=== PATIENT | male | born 1935 | race Hispanic/Latino ===

== ENCOUNTER → 2017-05-15 | Day surgery (SDC) | payer OTHER ==
[2017-05-14 12:52] LABS: BASOPHILS % 0.5 % (0.0-1.0); EOSINOPHILS # (AUTO) 0.8 (0.0-0.4); EOSINOPHILS % 9.8 % (0.0-6.0); HEMATOCRIT 27.5 % (38.2-49.6); HEMOGLOBIN 8.3 g/dL (14.0-18.0); LYMPHOCYTES # (AUTO) 2.3 (1.0-3.2); LYMPHOCYTES % 29.5 % (18.0-39.1); MEAN CORPUSCULAR HEMOGLOBIN 27.5 pg (28-32); MEAN CORPUSCULAR HGB CONC 30.2 g/dL (31-35); MEAN CORPUSCULAR VOLUME 91.1 fL (81-99); MONOCYTES # (AUTO) 0.6 (0.2-0.8); NEUTROPHILS # (AUTO) 4.1 (2.1-6.9); NEUTROPHILS % 51.9 % (38.7-80.0); PLATELET COUNT 151 x10e3/uL (140-360); RED BLOOD COUNT 3.02 x10e6/uL (4.3-5.7)
[2017-05-14 13:12] LABS: CALCIUM 8.2 mg/dL (8.4-10.2); CREATININE, SERUM 3.15 mg/dL (0.72-1.25)
--- NOTE | 2017-05-14 13:50 | Diagnostic Imaging Report ---
PROCEDURE: Frontal and lateral views of the chest. COMPARISON: Patients [facility], CT, CT ABDOMEN/PELVIS WO, 07/05/2016, 17:23. Patients [facility], DX, CHEST 2 VIEWS, 11/03/2016, 18:13. INDICATIONS: PREOP - STENTS FINDINGS: Lines/tubes: None. Lungs: The lungs are well inflated and grossly clear. There is no evidence of pneumonia or pulmonary edema. Pleura: There is no pleural effusion or pneumothorax. Stable blunting of the left posterior costophrenic sulcus, due to pleural thickening. Heart and mediastinum: Cardiac silhouette is unremarkable. Pulmonary vasculature is normal. Stable prominence of the epicardial fat pads. Bones: No acute bony abnormality. IMPRESSION: 1. No acute cardiopulmonary abnormalities. Andrew Ludwig M.D. Dictated by: Andrew Ludwig M.D. on 05/14/2017 at 13:50 Electronically approved by: Andrew Ludwig M.D. on 05/14/2017 at 13:50
[~2017-05-15] MED LIST: ACETAMINOPHEN 325 MG TAB ONE; ALBUTEROL0.63 MG/3 INH; AMPICILLIN SOD IV ONE; ASPIRIN81 MG PO; BELLADONNA/OPIUM 60 MG SUPP PR ONE; CARDURA2 MG PO; CEFDINIR300 MG PO; CEFTRIAXONE SOD 1 GM VIAL ONE; CLINDAMYCIN HC300 MG PO; CLOTRIMAZOLE10 MG PO; COLACE100 MG PO; DESFLURANE 240 ML BTL INH ONE; DEXAMETHASONE SOD PHOS INJ 4 MG/ML VIAL ONE; DOXAZOSIN MESYLA2 MG PO; FENTANYL CITRATE/PF 100MCG/2 ML INJ ONE; FERROUS SULFAT325 MG PO; FUROSEMIDE40 MG PO; IOPAMIDOL 610MG/1ML 300 MG/ML VIAL IV ONE; LASIX80 MG PO; LEVAQUIN250 MG PO; LIDOCAINE HCL 2% LOCAL INJ 5 ML SDV VIAL INJ ONE; LOVASTATIN40 MG PO; MEGESTROL ACETA40 MG PO; NAPROXEN500 MG PO; NASONEX17 GM; OMEPRAZOLE20 M1 PO; ONDANSETRON HCL INJ 2 MG/ML VIAL ONE; OXYBUTYNIN CHLO10 MG PO; OXYBUTYNIN CHLOR5 MG PO; PENICILLIN V P500 MG PO; PENTOXIFYLLINE PO; POLYETHYLENE GL17 GM PO; PROAIR HFA8.5 G1; PROPOFOL IV EMULSION 10 MG/ML 20 ML VIAL ONE; SOD CHL 0.9% IV ONE; SYMBICORT 160-4.6 GM; SYMBICORT 16010.2 GM PO; TYLENOL PO; ULTRAM 50MG50 MG PO; Z.0.CARDURA4 MG PO; Z.0.CIPRO750 MG PO; Z.0.FLOMAX0.4 MG PO; Z.0.LASIX40 MG PO; Z.0.LIPITOR20 MG PO; Z.0.PROSCAR5 MG PO; Z.0.TOVIAZ4 MG PO; Z.0.VENTOLIN HFA18 G; [UNRECOGNIZED DRUG - CODE] INH; [UNRECOGNIZED DRUG - OTHER]; [UNRECOGNIZED DRUG - OTHER] PO; [UNRECOGNIZED DRUG - OTHER] PO; [UNRECOGNIZED DRUG - OTHER] PO
--- OUTSIDE RECORDS SUMMARY | 2017-05-15 07:01 | XMS REPORT ---
Author Author [facility] Address Unknown Phone Unavailable Care Team Providers [employer] Dumper Name Role Phone JESUS MITCHELL Unavailable Unavailable Problems This patient has no known problems. Allergies, Adverse Reactions, Alerts This patient has no known allergies or adverse reactions. Medications This patient has no known medications. Results Test Description Test Time Test Comments Text Results Atomic Results Result Comments CHEST 2 VIEWS [place] [address] Patient Name: ERROL HENDRICKS MR #: [id number] : 1935 Age/Sex: 81/M Req #: [id number] Adm Physician: Ordered by: KITA ALONZO MD Report #: [id number] Location: OR Room/Bed: Procedure: [id number] DX/CHEST 2 VIEWS Exam Date: 05/14/17 Exam Time: 1305 REPORT STATUS: Signed PROCEDURE: Frontal and lateral views of the chest. COMPARISON: [facility], CT, CT ABDOMEN/PELVIS WO, 07/05/2016, 17:23. [facility], DX, CHEST 2 VIEWS, 11/03/2016 , 18:13. INDICATIONS: PREOP - STENTS FINDINGS: Lines/tubes: None. Lungs: The lungs are well inflated and grossly clear. There is no evidence of pneumonia or pulmonary edema. Pleura: There is no pleural effusion or pneumothorax. Stable blunting of the left posterior costophrenic sulcus, due to pleural thickening. Heart and mediastinum: Cardiac silhouette is unremarkable. Pulmonary vasculature is normal. Stable prominence of the epicardial fat pads. Bones: No acute bony abnormality. IMPRESSION: 1. No acute cardiopulmonary abnormalities. Rebecca Ludwig M.D. Dictated by: Rebecca Ludwig M.D. on 05/14/2017 at 13:50 Electronically approved by: Rebecca Ludwig M.D. on 2017 at 13:50 Dictated By: REBECCA LUDWIG MD 1350 Transcribed By: GLORIA on 1350 COPY TO: KITA ALONZO MD
--- NOTE | 2017-07-19 12:43 | Operative Report ---
DATE OF PROCEDURE: May 15, 2017 PREOPERATIVE DIAGNOSES 1. Bilateral ureteral strictures. 2. Bilateral hydronephrosis due to strictures. 3. Bilateral indwelling ureteral stents. POSTOPERATIVE DIAGNOSES 1. Bilateral ureteral strictures. 2. Bilateral hydronephrosis due to strictures. 3. Bilateral indwelling ureteral stents. PROCEDURE PERFORMED 1. Cystourethroscopy with removal of bilateral indwelling ureteral stents (separately performed for diagnosis of the stents). 2. Cystourethroscopy with dilation of right ureteral stricture (separately performed for diagnosis of stricture). 3. Cystourethroscopy with insertion of right indwelling ureteral stent (separately performed for insertion of the stent). 4. Cystourethroscopy with dilation of left indwelling ureteral stricture (separately performed for diagnosis of left stricture). 5. Cystourethroscopy with insertion of left indwelling ureteral stent (separately performed for to relieve hydronephrosis). 6. Interpretation of retrograde ureteropyelography. 7. Supervision of fluoroscopy; no radiologist present. 8. Urological services for supervision and interpretation of stricture dilation. ANESTHESIA: General. COMPLICATIONS: None. CLINICAL SUMMARY: Ludin Carroll is an 81-year-old with multiple urological problems and a longstanding history. He has the above diagnoses and is brought for the above procedures. He is aware of the risks of bleeding, infection, injury to adjacent structures, and need for additional procedure . He understood these risks and elected to proceed. OPERATIVE PROCEDURE IN DETAIL: Informed consent was verified. Ludin Carroll was properly identified, taken to the operating room, and placed on the cystoscopy table in the supine position. Anesthesia was uneventfully begun. The patient was then carefully and gently repositioned in the dorsal lithotomy position with all pressure points well padded. His genitalia were prepared and draped in usual sterile fashion. The 22.5-Rw[place]an cystoscope sheath with a visual obturator in place was atraumatically inserted into the patient's urethra and was guided down the relatively unremarkable urethra to the bulbar region. We dilated across a wide caliber stricture. We entered the patient's prostate bed, which was significant for some BPH. We entered the patient's bladder. We saw heavy trabeculations and bilateral stents. A guidewire was then placed alongside the right-sided stent to be guided along the patient's kidney. The stent was then grasped, completely removed, and discarded. A double-lumen ureteral catheter was then utilized as a coaxial dilator sheath. It was brought up over the guidewire and guided to the level of the patient's proximal ureter. We then placed a guidewire wire leaving it in place the guidewire. With cystoscopic and fluoroscopic guidance, a right-sided indwelling ureteral stent was then placed. It was coiled in the patient's kidney as well as the patient's bladder. The retaining suture was cut short. An identical maneuver was performed on the left hand side including stricture dilation and replacement of the stent. Interpretation of retrograde ureteropyelography: Contrast was instilled in a retrograde fashion bilaterally. He has ureteral tortuosity bilaterally. There is hydronephrosis that is more severe on the left hand side than the right hand side. The strictures appeared to be tight. I reviewed our dilation. The stents were in good position coiled in the patient's kidney as well as in the patient's bladder at the end of the case. Patient's bladder was then drained. The cystoscope was withdrawn. The patient was uneventfully reversed from anesthesia and taken to the recovery room in stable condition. Explicit postoperative instructions were given. We will follow the patient up in the office. Job#: [id number] KUN cc:Sterling Simpson MD
== END | disposition home or self-care (01) ==
LOC: OR 06:59
PROVIDERS: ATTEND Urology
DX: N13.1 Hydronephrosis with ureteral stricture, not elsewhere classified (principal); C61 Malignant neoplasm of prostate; Z46.6 Encounter for fitting and adjustment of urinary device; N32.89 Other specified disorders of bladder; N40.0 Benign prostatic hyperplasia without lower urinary tract symptoms; J44.9 Chronic obstructive pulmonary disease, unspecified; G47.33 Obstructive sleep apnea (adult) (pediatric); I10 Essential (primary) hypertension; R53.1 Weakness; Z01.810 Encounter for preprocedural cardiovascular examination; Z01.812 Encounter for preprocedural laboratory examination; Z01.818 Encounter for other preprocedural examination; Z87.891 Personal history of nicotine dependence
CPT/HCPCS: 36415; 52332; 52341; 71046; 74420; 80048; 85025; 87086; 93005; J0290; J0696; J1100; J2001; J2405; Q9967

== ENCOUNTER 2017-07-29 02:21 | Inpatient (IN) | payer OTHER ==
[~2017-07-29] VITALS: Ht 182.9 cm; Wt 72.3 kg
[2017-07-29] VITALS (79 sets, daily range): BP systolic 78–145; BP diastolic 50–105
[~2017-07-29 02:21] MED LIST changes: -ACETAMINOPHEN 325 MG TAB ONE; -AMPICILLIN SOD IV ONE; -BELLADONNA/OPIUM 60 MG SUPP PR ONE; -CEFTRIAXONE SOD 1 GM VIAL ONE; -DESFLURANE 240 ML BTL INH ONE; -DEXAMETHASONE SOD PHOS INJ 4 MG/ML VIAL ONE; -FENTANYL CITRATE/PF 100MCG/2 ML INJ ONE; -IOPAMIDOL 610MG/1ML 300 MG/ML VIAL IV ONE; -LIDOCAINE HCL 2% LOCAL INJ 5 ML SDV VIAL INJ ONE; -ONDANSETRON HCL INJ 2 MG/ML VIAL ONE; -PROPOFOL IV EMULSION 10 MG/ML 20 ML VIAL ONE; -SOD CHL 0.9% IV ONE
[2017-07-29 03:03] LABS: BASOPHILS % 0.2 % (0.0-1.0); EOSINOPHILS % 0.1 % (0.0-6.0); HEMATOCRIT 27.8 % (38.2-49.6); HEMOGLOBIN 8.2 g/dL (14.0-18.0); LYMPHOCYTES # (AUTO) 0.8 (1.0-3.2); LYMPHOCYTES % 7.4 % (18.0-39.1); MEAN CORPUSCULAR HEMOGLOBIN 27.9 pg (28-32); MEAN CORPUSCULAR HGB CONC 29.5 g/dL (31-35); MEAN CORPUSCULAR VOLUME 94.6 fL (81-99); MONOCYTES # (AUTO) 0.8 (0.2-0.8); MONOCYTES % 6.9 % (4.4-11.3); NEUTROPHILS # (AUTO) 9.4 (2.1-6.9); NEUTROPHILS % 84.6 % (38.7-80.0); PLATELET COUNT 218 x10e3/uL (140-360); RED BLOOD COUNT 2.94 x10e6/uL (4.3-5.7); RED CELL DISTRIBUTION WIDTH 15.1 % (11.7-14.4)
[2017-07-29] MEDS ORDERED: ALBUTEROL SULF 0.083% NEB SOLN 3 ML NEB NEB STA (03:09)
[2017-07-29] MEDS ORDERED: PIPER-TAZ 3.375 GM 50 ML IV ONE (03:15)
[2017-07-29 03:22] LABS: ALBUMIN 3.3 g/dL (3.5-5.0); ALBUMIN/GLOBULIN RATIO 0.8 (0.8-2.0); CALCIUM 9.1 mg/dL (8.4-10.2); CREATININE, SERUM 3.69 mg/dL (0.72-1.25)
[2017-07-29] MEDS ORDERED: TYLENOL EXTRA500 MG PO (03:28)
[2017-07-29] MEDS ORDERED: METHYLPREDNISOLONE SOD SUCC 125 MG/2ML VIAL IV ONE (03:30)
[2017-07-29 03:33] LABS: INR 1.22; PROTHROMBIN TIME 14.5 seconds (11.9-14.5)
[2017-07-29 03:34] LABS: PARTIAL THROMBOPLASTIN TIME 37.1 seconds (23.8-35.5)
[2017-07-29] MEDS ORDERED: COLACE100 MG PO (03:36)
--- NOTE | 2017-07-29 03:36 | Diagnostic Imaging Report ---
EXAM: CHEST 2 VIEWS, PA and lateral INDICATION: Chest pain COMPARISON: PA and lateral view of the chest May 14, 2017 FINDINGS: LINES/TUBES: None LUNGS: Bibasilar atelectasis. Bibasilar bronchial thickening. PLEURA: No effusions or pneumothorax. HEART AND MEDIASTINUM: Normal size and contour. BONES AND SOFT TISSUES: No acute findings. IMPRESSION: Bibasilar bronchial thickening and atelectasis. Emphysematous changes with bibasilar bronchial thickening and atelectasis. Signed by: Dr. Hina Nunez M.D. on 07/29/2017 3:33 AM
[2017-07-29] MEDS ORDERED: ASPIR 8181 MG PO (03:39)
[2017-07-29] MEDS ORDERED: IPRATROPIUM BROMIDE 0.02% 2.5 ML NEB NEB ONE (03:45)
[2017-07-29] MEDS ORDERED: ASPIRIN 325 MG TAB PO ONE (03:45)
[2017-07-29] MEDS ORDERED: NITROGLYCERIN 2% OINT 1 GM PKT TOP ONE (03:45)
[2017-07-29] MEDS ORDERED: ENOXAPARIN INJ 80 MG/0.8 ML SYR SC STA (04:01)
[2017-07-29 04:05] LABS: ABG HCO3 20 mmol/L (23-28); ABG PCO2 51 mmHg (41-51); ABG PH 7.18 (7.31-7.41); ABG PO2 81 mmHg (80-105)
[2017-07-29 04:20] LABS: CREATINE KINASE MB 42.8 ng/mL (0-4.3)
[2017-07-29] MEDS ORDERED: MORPHINE SULFATE 2 MG/ML SYR IV PRN (04:30)
[2017-07-29] MEDS ORDERED: SODIUM CHLORIDE FLUSH 10 ML SYR INJ PRN (04:30)
[2017-07-29] MEDS ORDERED: METOPROLOL TARTRATE 25 MG TAB PO SCH (04:30)
[2017-07-29] MEDS ORDERED: ENOXAPARIN SODIUM INJ 100 MG/ML SYR SC SCH (04:30)
[2017-07-29] MEDS ORDERED: PIPER-TAZ 3.375 GM 50 ML IV SCH (04:30)
[2017-07-29] MEDS ORDERED: SODIUM CHLORIDE 0.9% 250ML 250 ML IV ONE (04:30)
[2017-07-29] MEDS ORDERED: ASPIRIN 81 MG CHEW TAB PO ONE (04:30)
[2017-07-29] MEDS: METHYLPREDNISOLONE SOD SUCC 125 MG/2ML VIAL IV SCH ×3 (06:00→22:30)
[2017-07-29] MEDS: NITROGLYCERIN 2% OINT 1 GM PKT TOP SCH ×3 (06:00→18:00)
[2017-07-29 07:26] LABS: BILIRUBIN,URINE NEGATIVE (NEGATIVE); CLARITY,URINE CLEAR (CLEAR); COLOR,URINE YELLOW (YELLOW); KETONES,URINE NEGATIVE (NEGATIVE); LEUKOCYTE ESTERASE ,URINE NEGATIVE (NEGATIVE); NITRITE,URINE NEGATIVE (NEGATIVE); PROTEIN,URINE DIPSTICK TRACE (NEGATIVE); URINE UROBILINOGEN 0.2 mg/dL (0.2 - 1)
[2017-07-29 07:27] LABS: WBC,URINE (MAN) 0-5 /HPF (0-5)
[2017-07-29 07:28] LABS: EPITHELIAL CELLS,URINE RARE /LPF
[2017-07-29] MEDS ORDERED: ASPIRIN 325 MG TAB EC PO SCH (09:00)
[2017-07-29] MEDS: ASPIRIN 81 MG CHEW TAB PO SCH (09:00)
[2017-07-29] MEDS: ENOXAPARIN SODIUM INJ 100 MG/ML SYR SC SCH (09:00)
[2017-07-29] MEDS ORDERED: SIMVASTATIN 20 MG TAB PO SCH (09:00)
[2017-07-29] MEDS ORDERED: BENZONATATE 100 MG CAP PO PRN (09:30)
[2017-07-29] MEDS ORDERED: SODIUM CHLORIDE 0.45% 1,000 ML IV SCH (09:30)
[2017-07-29] MEDS ORDERED: DEXTROSE 50% SYRINGE 50 ML IV PRN (09:30)
[2017-07-29] MEDS: DOCUSATE SODIUM 100 MG CAP PO SCH ×2 (09:30→17:00)
[2017-07-29] MEDS: METOPROLOL TARTRATE 25 MG TAB PO SCH ×2 (09:45→21:00)
[2017-07-29] MEDS: ALBUTEROL/IPRATROPIUM 3 ML NEB NEB PRN ×2 (09:55→13:38)
--- NOTE | 2017-07-29 10:24 | History and Physical ---
CHIEF COMPLAINT: Cough, fever and shortness of breath. Patient is a pleasant 81-year-old male with multiple chronic medical problems. The patient is oxygen dependent at home. He came in with increasing cough and shortness of breath and with acute exacerbation of COPD. The patient found have positive cardiac enzymes as well. He does have kidney failure as well. His troponin I was 9.45. His CK level is 42. The patient was in distress when he came in with shortness of breath. BUN and creatinine in the emergency room was 50 and 3.7. The patient is currently stable. Pending for further workup. PAST MEDICAL HISTORY: Chronic kidney disease, COPD, hypertension, diabetes, history of prostate cancer, history of her chronic kidney disease and ureteral obstruction with multiple stent placement. SOCIAL HISTORY: Patient was an ex-smoker. No alcohol or recreational drugs. ALLERGIES: NO KNOWN ALLERGIES. HOME MEDICATIONS: Patient is on Tylenol, aspirin, Colace, doxazosin, furosemide, lovastatin. PHYSICAL EXAMINATION VITAL SIGNS: Temperature is 98, blood pressure 104/58, pulse rate 92, respirations 22. GENERAL: The patient is awake. He is alert and not in any distress. HEENT: Normocephalic, atraumatic and anicteric. NECK: Supple grossly. PULMONARY: Diminished breath sounds with wheezing and rhonchi. No rales at the bases. CARDIOVASCULAR: S1 and S2. Regular rate and rhythm. No tachycardia. ABDOMEN: Soft and unremarkable. EXTREMITIES: No cyanosis or edema. NEUROLOGIC: There is no focal deficit. LABORATORY: Sodium 140, potassium 4, chloride 106, bicarb 20, BUN 60, creatinine 3.7, glucose 156. Troponin I is 9.45. CK level is 313 and CK-MB is 42.8. BNP is 2050. WBC is 11.6, hemoglobin 8.2, hematocrit 27.8, and platelets 218,000. Urinalysis unremarkable. The patient's INR is 1.22. Chest x-ray with emphysematous lung. IMPRESSION 1. Acute exacerbation of chronic obstructive pulmonary disease. 2. Gef-GE-irllctrkw myocardial infarction. 3. Acute kidney injury on chronic kidney disease, most likely secondary to also maybe dehydration. PLAN: IV fluids. Gentle rehydration. Consultation with Dr. Lambert. Steroids and nebulizer treatment. Consultation with Dr. Ba Rojas for renal. Renal ultrasound. Consultation with Dr. Hampel for management of the previous stent and urinary obstruction. Patient pending on consultation. Job#: [id number] BRISEIDA
[2017-07-29 10:37] LABS: % IRON SATURATION 6 % (15-50); IRON 14 ug/dL (65-175); TOTAL IRON BINDING CAPACITY 230 ug/dL (261-478); TRANSFERRIN 164 mg/dL (174-364)
[2017-07-29 11:44] LABS: CREATINE KINASE MB 53.2 ng/mL (0-5.0)
--- NOTE | 2017-07-29 12:05 | Consultation ---
DATE OF CONSULTATION: July 29, 2017 NEPHROLOGY CONSULTATION REASON FOR CONSULT: Cwwsi-td-turdoac kidney disease. HPI: This is an 81-year-old male who is known to have multiple medical problems including hypertension, COPD, ex-smoker and he is known to have prostate cancer, status post Lupron in the past along with radiation therapy. Dr. Gerber has been following up. In June of 2016, he was admitted with urine retention, for which a cystoscopy done and he has been having bilateral ureteral stents given chronic hydronephrosis that has been exchanged every 3 months. He is due for exchange in 2 weeks. He is basically coming because of generalized weakness and fatigue. For the last few weeks, he has been having like tiredness every time he standup and walk for few steps. He will come back and lay in the chair because of low energy. Yesterday midnight, he woke up and he could not come out of the bed and he pooped on himself and almost passed out. He was brought to the ER for further evaluation. Troponin has been noticed to be extremely high. Cardiology has been consulted. We are consulted given creatinine is elevated. As we go back in the records, his creatinine has been high before. Since 2017, creatinine has been ranging between 2.8 and 3.6 and fluctuating. He has never seen university internship as per the family. He is only following up with Dr. Gerber, but he was told by his PCP, Dr. Simpson that he is close to be needing dialysis, so basically the patient is coming and he is being admitted for ICU and we are consulted for elevation in BUN and creatinine. PAST MEDICAL HISTORY: As mentioned above. PAST SURGICAL HISTORY: Status post radiation therapy, status post knee and spine surgery, status post hernia surgery, status post cystoscopy. FAMILY HISTORY: Positive for hypertension. SOCIAL HISTORY: Ex-smoker, quit smoking long time ago. No IV drug abuse. No alcohol. ALLERGIES: Negative per records. PHYSICAL EXAMINATION VITAL SIGNS: Today, blood pressure is 120/73, heart rate is 95, and temperature 98.5. GENERAL: Appears in no acute distress currently. HEAD, EARS, EYES, NECK: No lymphadenopathy. HEART: Regular rate and rhythm. Tachycardic. LUNGS: Good bilateral air entry with bibasilar rales. ABDOMEN: Soft and nontender. EXTREMITIES: Trace edema. LABORATORY DATA: Today, sodium 140, potassium 4.0, BUN is 60, creatinine is 3.69, CK-MB 42, CK is 315, troponin 9.4, BNP is 2050, and albumin 3.3. His urine is positive for protein and rbc's. ABG; pH 7.18, his pCO2 of 61, and bicarb is 20. Hemoglobin 8.2 and white count is 11. Chest x-ray with bibasilar bronchial thickening and atelectasis and emphysematous changes. ASSESSMENT AND PLAN 1. Acute kidney injury on top of chronic kidney disease. I am suspecting there is decline in the last year 2017 until now, is suspected secondary to chronic hydronephrosis and bilateral obstruction, status post stenting. We are going to order renal ultrasound stat to check on the stent positions. The patient did not pee since he was straight catheterized in the ER. We are going to insert a Lopez for strict ins and outs in the meantime. Urology will be following. Check fractional excretion of sodium. Avoid any nephrotoxins and nonsteroidal anti-inflammatory drugs. His creatinine today is 3.6 and within the last year has been fluctuating between 2.8 and 3.5, so it is close to his baseline range. I am suspecting chronic decline. 2. Electrolytes. Monitor potassium, on renal diet. 3. Hypertension. Blood pressure is acceptable. Hold on GARY inhibitors and ARBs in the meantime. 4. Non-ST elevation myocardial infarction with high troponin. Cardiology is following. Probably, the patient has been having heart attack previous to admission. I discussed in detail his risk for qozobhtz-qw-rcgr risk of contrast-induced nephroscopy and ending up needing hemodialysis post heart catheterization and contrast exposure, and the family and the patient agrees on the plan and want to proceed with heart catheterization. I am going to give IV fluids and Mucomyst and monitor his kidney function in the meantime since he has a low kidney function reserve. We are going to put a temporary hemodialysis catheter and monitor post heart catheterization his kidney function and his labs along with urine output. In case needed, we will initiate hemodialysis after heart catheterization. Cardiology service has been informed about the plan. Thank you for the consult. We will update the primary team for further recommendations. In the meantime, keep IV fluids and add IV bicarb given metabolic acidosis and give Mucomyst and we will attempt to insert temporary HD catheter by IR in case needed after her heart cath given high probability of needing dialysis post contrast exposure in this case. Job#: [id number] SUSANNE
[2017-07-29] MEDS: CEFTRIAXONE SOD 1 GM VIAL IV SCH (12:55)
[2017-07-29] MEDS: SODIUM BICARBONATE 8.4% 75 ML in SODIUM CHLORIDE 0.45% 1,000 ML IV SCH (12:55)
[2017-07-29] MEDS: INSULIN LISPRO 100 UNIT/1 ML 3ML VIAL SQ SCH ×3 (12:57→21:00)
--- NOTE | 2017-07-29 13:11 | Consultation ---
DATE OF CONSULTATION: July 29, 2017 CARDIOLOGY CONSULTATION REASON FOR CONSULTATION: Qnw-DR-vghzfxgyz HI. HPI: This is an 81-year-old male that presented with coughing and fever. According to the , he had a cough and fever for the past 3 days. He uses home oxygen due to history of COPD. He also stated he was sitting on a recliner and he passed out. She did not remember how long, but she brought him into the emergency room for evaluation. He denied any chest pain, any palpitations, any dizziness, or shortness of breath. He was found to have an elevated troponin, and he was sent to the ICU for evaluation. His chest x-ray showed COPD. PAST MEDICAL HISTORY: Bilateral ureteral stricture, chronic COPD with home oxygen dependence, and prostate cancer. PAST SURGICAL HISTORY: Positive for bilateral ureteral stent placement by urology. FAMILY HISTORY: Positive for hypertension. SOCIAL HISTORY: He lives at home with the . He smoked for a long time, but he quit 18 years ago. ALLERGIES: HE IS NOT ALLERGIC TO ANY MEDICATIONS. REVIEW OF SYSTEMS: Negative except those mentioned above. PHYSICAL EXAMINATION VITAL SIGNS: Temperature 98, heart rate 89, blood pressure 132/74, respirations 22, oxygen saturation 98%. GENERAL: He is sitting on the edge of the bed. Awake, alert and oriented times 3. HEENT: Mucous membrane moist. NECK: Supple. LUNGS: Bilateral clear to auscultation. CARDIOVASCULAR: S1 and S2 present. ABDOMEN: Soft. NEUROLOGICAL: Intact. EXTREMITIES: Bilateral lower with trace edema with redness noted. LABS: Sodium 140, potassium 4, chloride 106, CO2 20, BUN 16, creatinine 3.69, glucose 156. White blood cells 11, hemoglobin 8.2, hematocrit 27.8, and platelets 218,000. PT 14.5, PTT 37.1 and INR 1.22. IMPRESSION 1. Ssm-LR-rarllzsbb myocardial infarction. 2. Anemia. 3. Syncope. 4. Chronic obstructive pulmonary disease exacerbation. 5. Chronic kidney disease. 6. History of bilateral ureteral stents. ASSESSMENT AND PLAN: Will get serial cardiac enzymes. Will get bilateral carotid Doppler to rule out any occlusion. He is pending echocardiogram to assess the LV and the valve function. He is getting PRBC now. We are going to get renal clearance for possible cardiac catheterization, and also get bilateral lower extremity venous Doppler to rule out any DVT. Further cardiac workup pending clinical course. Thank you for this consultation. DICTATED BY GRACE COREAS NP Job#: [id number] RI
[2017-07-29] MEDS ORDERED: FUROSEMIDE INJ 10 MG/ML 2 ML VIAL ONE (13:27)
[2017-07-29 14:05] LABS: ABG HCO3 23 mmol/L (23-28); ABG PCO2 73 mmHg (41-51); ABG PH 7.11 (7.31-7.41); ABG PO2 297 mmHg (80-105)
[2017-07-29 14:14] LABS: SODIUM,URINE 40 mmol/L; TOTAL PROTEIN, URINE 34.3 mg/dL (1-14)
[2017-07-29 14:16] LABS: EOSINOPHIL SMEAR,URINE NONE SEEN (NONE SEEN)
--- NOTE | 2017-07-29 14:19 | Diagnostic Imaging Report ---
PROCEDURE: A single AP view of the chest. COMPARISON: Chest 2 views 07/29/2017. INDICATIONS: HD CATHETER PLACEMENT FINDINGS: Lines/tubes: Right internal jugular temporary central venous catheter with tip projecting over the expected region of the superior vena cava. Lungs: Bilateral perihilar opacifications. No parenchymal mass. Pleura: There is no pleural effusion or pneumothorax. Heart and mediastinum: The heart and the mediastinum are unremarkable. Bones: No acute bony abnormality. IMPRESSION: Bilateral perihilar opacifications may represent pulmonary edema. Dictated by: Cali Duron M.D. on 07/29/2017 at 14:20 Electronically approved by: Cali Duron M.D. on 07/29/2017 at 14:20
[2017-07-29] MEDS: PROPOFOL IV EMULSION 10MG/ML 100 ML IV PRN ×3 (14:30→23:32)
[2017-07-29] MEDS ORDERED: BENZOCAINE/TETRACAINE/BUTAMBEN AERO SPRAY 56 GM CAN ONE (14:42)
--- NOTE | 2017-07-29 14:47 | Diagnostic Imaging Report ---
PROCEDURE:ULTRASOUND GUIDANCE FOR VASCULAR ACCESS COMPARISON:None. INDICATIONS:HD TRIALYSIS IN RT IJV FINDINGS:Right internal jugular vein is noted to be patent. Ultrasound guidance was utilized for access for right internal jugular temporary central venous catheter placement. CONCLUSION: Patent right internal jugular vein. Successful ultrasound guidance for temporary central venous catheter placement. Dictated by: Cali Duron M.D. on 07/29/2017 at 14:49 Electronically approved by: Cali Duron M.D. on 07/29/2017 at 14:49
--- NOTE | 2017-07-29 14:54 | Diagnostic Imaging Report ---
PROCEDURE:NON-TUNNELLED CVC CATH PLACMNT COMPARISON:None. INDICATIONS: HD TRIALYSIS RT IJV COMPLICATIONS: None. MEDICATIONS: None. BLOOD LOSS: Less than 2 cc. PROCEDURE: The procedure was performed at the bedside in the intensive care unit. Additional support was needed by the nursing staff to keep the patient from moving during the examination. A focused sonographic evaluation demonstrated a patent and compressible right internal jugular vein. A safe approach was determined. The right neck was prepped and draped in a sterile fashion. Utilizing direct sonographic guidance, a 21 gauge needle was advanced into the right internal jugular vein. A 0.018 inch wire was advanced centrally. An access sheath was placed over the wire to secure the vascular access. The wire was upsized to a 0.035 inch wire. A single dilation was performed over the wire. The double lumen with excess report temporary central venous catheter was advanced over the wire. The wire was removed. The catheter ports demonstrated proper function with aspiration and flushing of sterile saline. The catheter lumens were flushed with sterile saline. The catheter was secured to the skin with a suture. A sterile dressing was applied. The patient tolerated the procedure well. There were no immediate complications. The patient remained in the intensive care unit in stable unchanged condition. CONCLUSION: Successful placement of a right internal jugular temporary central venous Trialysis catheter utilizing ultrasound guidance. Dictated by: Cali Duron M.D. on 07/29/2017 at 14:55 Electronically approved by: Cali Duron M.D. on 07/29/2017 at 14:55
[2017-07-29] MEDS: BENZONATATE 100 MG CAP PO SCH ×2 (15:00→21:12)
[2017-07-29] MEDS ORDERED: PROPOFOL IV EMULSION 10MG/ML 100 ML ONE (15:07)
--- NOTE | 2017-07-29 15:34 | Consultation ---
DATE OF CONSULTATION: July 29, 2017 PULMONARY/CRITICAL CARE CONSULTATION CHIEF COMPLAINT: Worsening dyspnea and hypercapnic respiratory failure. HISTORY OF PRESENT ILLNESS: The patient is an 81-year-old man with a stage 4 chronic renal disease. He also has COPD. He uses oxygen at home. He has a nebulizer, as well as bronchodilators. Over the past several weeks, he has had several episodes of loss of consciousness preceded by headaches. After these episodes, he was confused. Something similar happened in the middle of the night around 1 a.m. At this time, it was associated with some chest pain. He went to the emergency department. He was found to have an elevated troponin and changes consistent with an inferior SD on his EKG. PAST SURGICAL HISTORY 1. Status post prostate surgery. 2. History of ureteral stents that require replacement every 3-6 months. PAST MEDICAL HISTORY 1. Chronic kidney disease, stage 4. 2. COPD. 3. Hypertension. 4. Prostate cancer. SOCIAL HISTORY: The patient was an ex-smoker. He is no longer smoking. He does not drink. He has strong family support. ALLERGIES: THE PATIENT HAS NO KNOWN DRUG ALLERGIES. REVIEW OF SYSTEMS: The patient is afebrile. The vital signs are stable. He does not complain of any headache. He is on a BiPAP mask. He is not having any neck pain. He does have some dyspnea. He has some cough. He had chest pain, but this has resolved. He does not have abdominal pain. There is no nausea or vomiting. He is not having any leg edema or pain. PHYSICAL EXAMINATION VITALS: The patient is afebrile. The vital signs are stable. HEENT: Shows no facial swelling or erythema. The nasal mucosa is normal. The oropharynx is normal. LYMPHATIC: Shows no submandibular, cervical or supraclavicular adenopathy. CARDIAC: Reveals a regular rate and rhythm with a normal S1 and S2. There are no murmurs or rubs. LUNGS: Auscultation of the lungs reveals rhonchus breath sounds bilaterally. There is no wheezing. ABDOMEN: Soft and nontender. There is no rebound or guarding. EXTREMITIES: Shows no leg edema or calf tenderness. There is no cyanosis or clubbing. SKIN: Shows no rashes. NEUROLOGIC: Shows no focal abnormalities. LABORATORY DATA: The white blood cell count is 11 and hemoglobin is 8.2. The platelet count is 218,000. The BUN to creatinine ratio is 60 to 3.7. The carbon dioxide is 20. The troponin I increased to 15.1. The BNP is elevated at 2049. RADIOGRAPHIC DATA: The chest x-ray shows bibasilar atelectasis and some hyperinflation. IMPRESSION 1. Acute inferior wall myocardial infarction. 2. Zgijq-os-idwofkm respiratory failure. 3. Tbvyw-ew-qrxgrqn renal failure. PLAN 1. The patient has hypercapnic respiratory failure and will require intubation. 2. Arrange for cardiac catheterization. 3. Nephrology has been consulted and has already placed a dialysis catheter. He will probably require dialysis. 4. Diuretics or fluid removal with dialysis. 5. Antibiotics. 6. Panculture. 7. Prognosis is guarded. Job#: [id number] BRISEIDA
--- NOTE | 2017-07-29 15:51 | Operative Report ---
DATE OF PROCEDURE: July 29, 2017 PROCEDURE: Endotracheal intubation. PREOPERATIVE DIAGNOSES 1. Acute inferior wall myocardial infarction. July 29, 2017Chronic obstructive pulmonary disease. 2. Respiratory failure. POSTOP DIAGNOSES 1. Acute inferior wall myocardial infarction. July 29, 2017Chronic obstructive pulmonary disease. 2. Respiratory failure. CONSENT: Consent was obtained from patient and family. PROCEDURE IN DETAIL: Patient was placed in a supine position. He was preoxygenated with 100% oxygen. He was ventilated with an Ambu bag. He received etomidate 60 mg IV along with Cetacaine spray of the vocal cords. The GlideScope was used to visualize the glottis. An 8.0 endotracheal tube was placed through the glottis on the first attempt. There was good carbon dioxide return and equal breath sounds bilaterally. COMPLICATIONS: None. The patient's oxygen saturation remained above 90% throughout the procedure. His blood pressure remained stable. Job#: [id number] CAS
--- NOTE | 2017-07-29 15:54 | Diagnostic Imaging Report ---
PROCEDURE: CHEST SINGLE (PORTABLE) COMPARISON: Patients [facility], DX, CHEST XRAY LINE PLACEMENT, 07/29/2017, 14:00. INDICATIONS: STATUS POST INTUBATION FINDINGS: Image is underpenetrated. Lines/tubes: Endotracheal tube terminates at the clavicular heads. Enteric tube extends past the diaphragm. Right IJ catheter terminates in the SVC. A coil lies to the right of the aorta arch, not present on previous exam. LUNGS: There is new retrocardiac airspace disease. Right basilar airspace opacity is stable. Pulmonary vascular markings are prominent and stable. PLEURA: No large effusions or pneumothorax. HEART \T\ MEDIASTINUM: Stable cardiomegaly. BONES \T\ SOFT TISSUES: Unremarkable. CONCLUSION: 1. Support devices as described above. 2. Retrocardiac airspace disease, either atelectasis or pneumonia. Small pleural effusion cannot be excluded. 3. Stable right basilar airspace disease. 4. Stable cardiomegaly and pulmonary vascular prominence. Dictated by: Marco Antonio Pierce M.D. on 07/29/2017 at 15:55 Electronically approved by: Marco Antonio Pierce M.D. on 07/29/2017 at 15:55
[2017-07-29] MEDS ORDERED: SODIUM BICARBONATE 8.4% 50 ML VIAL IV ONE (16:30)
[2017-07-29] MEDS ORDERED: NOREPINEPHRINE INJ 4MG/4ML 8 MG in DEXTROSE 5% 250ML 250 ML IV PRN (16:30)
[2017-07-29] MEDS ORDERED: HEPARIN SOD/SOD CHLORIDE 2,000 ML ONE (16:37)
[2017-07-29] MEDS ORDERED: IOPAMIDOL 370 MG/ML 200 ML INFUS..BTL INJ ONE (16:37)
[2017-07-29] MEDS ORDERED: LIDOCAINE HCL 2% LOCAL 20 ML VIAL ONE (16:37)
[2017-07-29] MEDS ORDERED: MIDAZOLAM HCL 2 MG/2 ML VIAL ONE ×2 (16:38→18:44)
[2017-07-29] MEDS ORDERED: FENTANYL CITRATE/PF 100MCG/2 ML INJ ONE (16:39)
[2017-07-29] MEDS ORDERED: SODIUM CHLORIDE 0.9% 1000ML 1,000 ML ONE (16:39)
[2017-07-29] MEDS ORDERED: ATROPINE SULFATE 0.1 MG/ML 10ML SYR ONE (16:39)
[2017-07-29] MEDS ORDERED: SODIUM BICARBONATE 8.4% INJ 50 ML SYR IV ONE (16:45)
[2017-07-29] MEDS ORDERED: BIVALIRUDIN 250 MG/VIAL IV ONE (17:10)
[2017-07-29] MEDS ORDERED: SODIUM CHLORIDE 0.9% 50ML 50 ML ONE (17:10)
[2017-07-29 18:11] LABS: ABG HCO3 20 mmol/L (23-28); ABG PCO2 56 mmHg (41-51); ABG PH 7.17 (7.31-7.41); ABG PO2 162 mmHg (80-105)
[2017-07-29] MEDS ORDERED: SODIUM BICARBONATE 8.4% SYRING 50 ML ONE (18:29)
[2017-07-29] MEDS ORDERED: ETOMIDATE 40 MG/ 20ML VIAL IV ONE (18:44)
[2017-07-29 18:49] LABS: CREATINE KINASE MB 69.2 ng/mL (0-5.0)
[2017-07-29 18:51] LABS: ALBUMIN 2.8 g/dL (3.5-5.0); ALBUMIN/GLOBULIN RATIO 0.7 (0.8-2.0); ANION GAP 19.2 mmol/L (8-16); CREATININE, SERUM 3.9 mg/dL (0.72-1.25); MAGNESIUM 1.7 MG/DL (1.3-2.1); PHOSPHORUS 5.8 MG/DL (2.3-4.7); POTASSIUM 4.2 mmol/L (3.5-5.1)
[2017-07-29] MEDS: ACETYLCYSTEINE 200 MG/1 ML 10ML VIAL PO SCH (19:10)
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
[2017-07-29 20:54] LABS: BASOPHILS % 0.1 % (0.0-1.0); HEMATOCRIT 24.1 % (38.2-49.6); HEMOGLOBIN 7.6 g/dL (14.0-18.0); LYMPHOCYTES # (AUTO) 0.5 (1.0-3.2); LYMPHOCYTES % 5.7 % (18.0-39.1); MEAN CORPUSCULAR HEMOGLOBIN 28.6 pg (28-32); MEAN CORPUSCULAR HGB CONC 31.5 g/dL (31-35); MEAN CORPUSCULAR VOLUME 90.6 fL (81-99); MONOCYTES # (AUTO) 0.4 (0.2-0.8); MONOCYTES % 4.7 % (4.4-11.3); NEUTROPHILS # (AUTO) 7.8 (2.1-6.9); NEUTROPHILS % 88.6 % (38.7-80.0); PLATELET COUNT 192 x10e3/uL (140-360); RED BLOOD COUNT 2.66 x10e6/uL (4.3-5.7); RED CELL DISTRIBUTION WIDTH 15.1 % (11.7-14.4)
[2017-07-29 21:10] LABS: ANION GAP 17.9 mmol/L (8-16); CALCIUM 8.9 mg/dL (8.4-10.2); CREATININE, SERUM 3.74 mg/dL (0.72-1.25); POTASSIUM 3.9 mmol/L (3.5-5.1)
[2017-07-29] MEDS: SIMVASTATIN 40 MG TAB PO SCH (21:12)
[2017-07-29] MEDS: DOXAZOSIN MESYLATE 2 MG TAB PO SCH (21:12)
--- NOTE | 2017-07-29 22:54 | Operative Report ---
DATE OF PROCEDURE: July 29, 2017 PROCEDURES PERFORMED: 1. Left heart catheterization. 2. Selective coronary angiogram. 3. Attempted PTCA of second obtuse marginal branch. INDICATIONS: Non-ST elevation myocardial infarction. ESTIMATED BLOOD LOSS: 8 mL. ANESTHESIA: IV propofol and 2% lidocaine for local anesthesia. DESCRIPTION OF PROCEDURE: Patient was intubated on a vent and he was brought to the cardiac catheterization laboratory and placed on the table. Both groins were painted and draped in a sterile fashion. Lidocaine injected in the right groin for local anesthesia. Right femoral artery was accessed by Seldinger technique, and a 5-Slovak sheath was placed in the right femoral artery. The patient had vascular disease and J wire would not advance and so Wholey wire was used. The left main was cannulated using a JL4 5-Slovak catheter. Coronary angiogram was performed and images obtained in multiple views. Right coronary artery was cannulated using the 3DRC 5-Slovak catheter and coronary angiogram was performed. Images obtained in multiple views. Attempts were made to cross the aortic valve into the LV, but pigtail catheter would not advance. The catheters were exchanged over a Wholey wire. After reviewing the images, it was decided to attempt intervention on the 100% occluded small to moderate second obtuse marginal branch. The 5-Slovak sheath was exchanged for a 6-Slovak sheath over a guidewire. Left main was cannulated using a JL4 6-Slovak guide. The left main was cannulated using a JL6 6-Slovak guide. Runthrough wire was manipulated and placed at the lesion in the second obtuse marginal branch. Attempts were made to cross the lesion using a Runthrough wire, but the wire would not advance, but a 2 x 12 mm Emerge balloon was advanced over the wire to the site of lesion and the wire was manipulated but it still would not advance through the lesion so the Runthrough wire was removed and a Whisper wire was advanced through the retained balloon catheter. Attempts were made to pass a Whisper wire through the occluded lesion. It appeared to be calcified, cecy and the Whisper wire would not advance. So it was decided not to proceed with intervention. Patient was given Angio-Max during the procedure. The patient tolerated the procedure without any complications. He was on propofol and Levophed drip. REPORT: LEFT MAIN: Normal caliber and 20% distal lesion. LEFT ANTERIOR DESCENDING: Normal caliber with a few luminal irregularities. THIRD DIAGONAL BRANCH: Small vessel and 70% proximal lesion. LEFT CIRCUMFLEX: Moderate caliber and has diffuse luminal irregularities. SECOND OBTUSE MARGINAL BRANCH: Small to moderate-sized vessel and 100% occluded in its mid portion. RIGHT CORONARY ARTERY: Large caliber, dominant vessel and has diffuse luminal irregularities throughout its course. PLAN: Medical management. Job#: [id number] GH MTDD
[2017-07-30] VITALS (97 sets, daily range): BP systolic 87–114; BP diastolic 55–70
[2017-07-30] MEDS: SODIUM BICARBONATE 8.4% 75 ML in SODIUM CHLORIDE 0.45% 1,000 ML IV SCH (01:20)
[2017-07-30] MEDS: PROPOFOL IV EMULSION 10MG/ML 100 ML IV PRN ×6 (02:53→22:46)
[2017-07-30] MEDS: NITROGLYCERIN 2% OINT 1 GM PKT TOP SCH ×4 (06:00→18:00)
[2017-07-30] MEDS: METHYLPREDNISOLONE SOD SUCC 125 MG/2ML VIAL IV SCH ×3 (06:14→22:45)
[2017-07-30 06:18] LABS: BASOPHILS % 0.1 % (0.0-1.0); HEMATOCRIT 23.1 % (38.2-49.6); HEMOGLOBIN 7.2 g/dL (14.0-18.0); LYMPHOCYTES # (AUTO) 0.6 (1.0-3.2); LYMPHOCYTES % 8.2 % (18.0-39.1); MEAN CORPUSCULAR HGB CONC 31.2 g/dL (31-35); MEAN CORPUSCULAR VOLUME 89.9 fL (81-99); MONOCYTES # (AUTO) 0.3 (0.2-0.8); MONOCYTES % 4.2 % (4.4-11.3); NEUTROPHILS # (AUTO) 5.9 (2.1-6.9); NEUTROPHILS % 86.5 % (38.7-80.0); PLATELET COUNT 191 x10e3/uL (140-360); RED BLOOD COUNT 2.57 x10e6/uL (4.3-5.7); RED CELL DISTRIBUTION WIDTH 15.1 % (11.7-14.4)
[2017-07-30 06:43] LABS: ALBUMIN 2.5 g/dL (3.5-5.0); ALBUMIN/GLOBULIN RATIO 0.8 (0.8-2.0); ANION GAP 17.7 mmol/L (8-16); CALCIUM 8.8 mg/dL (8.4-10.2); CHOL/HDL RATIO 2.5 (3.9-4.7); CREATININE, SERUM 3.73 mg/dL (0.72-1.25); MAGNESIUM 1.6 MG/DL (1.3-2.1); PHOSPHORUS 5.8 MG/DL (2.3-4.7); POTASSIUM 3.7 mmol/L (3.5-5.1)
[2017-07-30 07:10] LABS: THYROID STIMULATING HORMONE 0.173 uIU/mL (0.350-4.940)
[2017-07-30] MEDS: INSULIN LISPRO 100 UNIT/1 ML 3ML VIAL SQ SCH ×4 (07:30→21:00)
[2017-07-30 08:49] LABS: ABG PCO2 36 mmHg (41-51); ABG PH 7.36 (7.31-7.41)
[2017-07-30 08:50] LABS: ABG HCO3 21 mmol/L (23-28); ABG PO2 159 mmHg (80-105)
[2017-07-30] MEDS: ENOXAPARIN SODIUM INJ 100 MG/ML SYR SC SCH (09:00)
[2017-07-30] MEDS: DOCUSATE SODIUM 100 MG CAP PO SCH ×2 (09:28→16:47)
[2017-07-30] MEDS: ASPIRIN 81 MG CHEW TAB PO SCH (09:28)
[2017-07-30] MEDS: CEFTRIAXONE SOD 1 GM VIAL IV SCH (09:29)
[2017-07-30] MEDS: BENZONATATE 100 MG CAP PO SCH ×3 (09:29→21:07)
[2017-07-30] MEDS: PIPERACILLIN/TAZO 2.25 GM 50 ML IV SCH ×2 (09:29→18:07)
[2017-07-30] MEDS: METOPROLOL TARTRATE 25 MG TAB PO SCH ×2 (09:29→21:00)
[2017-07-30] MEDS: ACETYLCYSTEINE 200 MG/1 ML 10ML VIAL PO SCH ×2 (10:30→16:57)
[2017-07-30] MEDS ORDERED: ATROPINE SULFATE 0.1 MG/ML 10ML SYR ONE (10:32)
[2017-07-30] MEDS ORDERED: EPOETIN ALFA 10000 UNIT/ML VIAL SC ONE (12:45)
[2017-07-30] MEDS ORDERED: FUROSEMIDE INJ 10 MG/ML 4 ML VIAL IV ONE (12:45)
[2017-07-30] MEDS ORDERED: SODIUM CHLORIDE 0.9% 1000ML 1,000 ML ONE (12:47)
--- NOTE | 2017-07-30 13:51 | Diagnostic Imaging Report ---
PROCEDURE:US RETROPERITONEAL ( KIDNEY ). COMPARISON:CT of the abdomen and pelvis from 07/05/2016. INDICATIONS:CKD TECHNIQUE: Felton-scale and color sonographic images of the bilateral kidneys and bladder where obtained in transverse and longitudinal planes. FINDINGS: RIGHT KIDNEY: 9.2 cm, cortex 1.5 cm Cysts: None Solid masses: None Stones: None Hydronephrosis: Moderate hydronephrosis and hydroureter Echogenicity: Normal LEFT KIDNEY: 10.0 cm, cortex 1.2 cm Cysts: 2.3 x 2.2 x 2.0 cm simple appearing cyst in the left upper pole. Solid masses: None Stones: None Hydronephrosis: Moderate left hydronephrosis Echogenicity: Normal Bladder: The bladder is collapsed by a Lopez catheter. The bladder wall appears thickened, which may be partially attributable to underdistention. Prostate: Not visualized. CONCLUSION: Moderate bilateral hydronephrosis, appearing similar to the prior CT from 07/05/2016. The bladder is collapsed by a Lopez catheter. The bladder wall appears thickened. Dictated by: Jere Casanova M.D. on 07/30/2017 at 13:52 Electronically approved by: Jere Casanova M.D. on 07/30/2017 at 13:52
[2017-07-30] MEDS ORDERED: SODIUM CHLORIDE 0.9% 250ML 250 ML ONE (14:33)
--- NOTE | 2017-07-30 15:22 | Progress Note ---
DATE: July 30, 2017 PULMONARY/CRITICAL CARE PROGRESS NOTE The patient went to the manager labor relations yesterday. He had acute occlusion of an obtuse marginal. They were unable to place a stent, and medical therapy was recommended. The patient's hemoglobin was 7.2 this morning. He has received 2 units of packed red blood cells along with Lasix between units. He is -800 mL so far today. His blood pressure remains stable on propofol. He has been weaned off the Levophed. His renal function is stable. Although a dialysis catheter was placed, he does not require dialysis at this time. OBJECTIVE VITALS: The blood pressure is 101/65. Pulse is 65. The patient is afebrile. The saturation is 96%. HEENT: No facial swelling or erythema. The nasal mucosa is normal. The oropharynx is normal. LYMPHATIC: No submandibular, cervical or supraclavicular adenopathy. CARDIAC: Regular rate and rhythm with normal S1 and S2. There are no murmurs or rubs. LUNGS: Auscultation of the lungs reveals crackles in both lung stringer. ABDOMEN: Soft and nontender. There is no rebound or guarding. EXTREMITIES: No leg edema or calf tenderness. LABORATORY DATA: The white blood cell count is 6.8, and hemoglobin is 7.2. The platelet count is 191,000. The XNB-wx-yhbvdqjppx ratio is 72 to 3.73. The carbon dioxide is 21. The other electrolytes are within normal limits. IMPRESSION 1. Xjgvy-xk-fhasaxs respiratory failure. 2. Acute systolic congestive heart failure secondary to myocardial infarction. 3. Acute inferior wall myocardial infarction. 4. Chronic obstructive pulmonary disease. 5. Stage-4 chronic renal disease. 6. Anemia secondary to acute and chronic blood loss. PLAN 1. The patient will continue to receive 2 units of packed red blood cells. 2. Continue Lasix and diuresis. 3. Repeat chest x-ray and labs in the morning. 4. Continue propofol for sedation. 5. After diuresis tomorrow morning, we will attempt a spontaneous breathing trial. 6. The patient has been pancultured. 7. Case discussed with family and with nursing staff. Greater than 35 minutes in direct critical care time over the course of 2 separate visits, one at 8:30 a.m. and one at 3 p.m. Job#: [id number]
[2017-07-30 16:59] LABS: BASOPHILS % 0.1 % (0.0-1.0); HEMATOCRIT 24.6 % (38.2-49.6); HEMOGLOBIN 7.8 g/dL (14.0-18.0); LYMPHOCYTES # (AUTO) 0.6 (1.0-3.2); LYMPHOCYTES % 7.8 % (18.0-39.1); MEAN CORPUSCULAR HEMOGLOBIN 28.5 pg (28-32); MEAN CORPUSCULAR HGB CONC 31.7 g/dL (31-35); MEAN CORPUSCULAR VOLUME 89.8 fL (81-99); MONOCYTES # (AUTO) 0.3 (0.2-0.8); MONOCYTES % 4.6 % (4.4-11.3); NEUTROPHILS # (AUTO) 6.4 (2.1-6.9); NEUTROPHILS % 86.7 % (38.7-80.0); PLATELET COUNT 182 x10e3/uL (140-360); RED BLOOD COUNT 2.74 x10e6/uL (4.3-5.7)
[2017-07-30 17:14] LABS: CALCIUM 8.7 mg/dL (8.4-10.2); CREATININE, SERUM 3.61 mg/dL (0.72-1.25); MAGNESIUM 1.6 MG/DL (1.3-2.1)
[2017-07-30] MEDS ORDERED: FUROSEMIDE INJ 10 MG/ML 4 ML VIAL ONE (17:44)
[2017-07-30] MEDS: DOXAZOSIN MESYLATE 2 MG TAB PO SCH (21:07)
[2017-07-30] MEDS: SIMVASTATIN 40 MG TAB PO SCH (21:07)
[2017-07-31] VITALS (99 sets, daily range): BP systolic 87–130; BP diastolic 57–87
[2017-07-31] MEDS: PIPERACILLIN/TAZO 2.25 GM 50 ML IV SCH ×3 (02:00→17:57)
[2017-07-31] MEDS: PROPOFOL IV EMULSION 10MG/ML 100 ML IV PRN ×3 (02:40→21:53)
--- NOTE | 2017-07-31 05:41 | Diagnostic Imaging Report ---
EXAM: CHEST SINGLE (PORTABLE), AP 1 view INDICATION: Intubated COMPARISON: AP view of the chest July 29, 2017 FINDINGS: LINES/TUBES: Stable position of temporary right internal jugular vein hemodialysis catheter, endotracheal tube and partially visualized nasal/orogastric tube. LUNGS: Likely interstitial edema and bibasilar atelectasis. PLEURA: Possible small layering bilateral pleural effusions. HEART AND MEDIASTINUM: Normal size and contour. BONES AND SOFT TISSUES: No acute findings. IMPRESSION: Likely interstitial edema and bibasilar atelectasis. Possible small layering bilateral pleural effusions. Signed by: Dr. Hina Nunez M.D. on 07/31/2017 5:38 AM
[2017-07-31] MEDS: NITROGLYCERIN 2% OINT 1 GM PKT TOP SCH ×4 (05:50→17:59)
[2017-07-31] MEDS: METHYLPREDNISOLONE SOD SUCC 125 MG/2ML VIAL IV SCH ×3 (06:05→22:00)
[2017-07-31] MEDS: INSULIN LISPRO 100 UNIT/1 ML 3ML VIAL SQ SCH ×3 (07:30→16:30)
[2017-07-31 08:17] LABS: HEMATOCRIT 26.2 % (38.2-49.6); HEMOGLOBIN 8.3 g/dL (14.0-18.0); LYMPHOCYTES # (AUTO) 0.6 (1.0-3.2); LYMPHOCYTES % 7.8 % (18.0-39.1); MEAN CORPUSCULAR HEMOGLOBIN 28.2 pg (28-32); MEAN CORPUSCULAR HGB CONC 31.7 g/dL (31-35); MEAN CORPUSCULAR VOLUME 89.1 fL (81-99); MONOCYTES # (AUTO) 0.4 (0.2-0.8); MONOCYTES % 5.2 % (4.4-11.3); NEUTROPHILS # (AUTO) 7.1 (2.1-6.9); NEUTROPHILS % 86.2 % (38.7-80.0); PLATELET COUNT 205 x10e3/uL (140-360); RED BLOOD COUNT 2.94 x10e6/uL (4.3-5.7)
[2017-07-31 08:44] LABS: ANION GAP 20.9 mmol/L (8-16); CALCIUM 8.6 mg/dL (8.4-10.2); CREATININE, SERUM 3.64 mg/dL (0.72-1.25); POTASSIUM 3.9 mmol/L (3.5-5.1)
[2017-07-31 08:53] LABS: MAGNESIUM 1.9 MG/DL (1.3-2.1); PHOSPHORUS 6.8 MG/DL (2.3-4.7)
[2017-07-31] MEDS: ACETYLCYSTEINE 200 MG/1 ML 10ML VIAL PO SCH (09:00)
[2017-07-31] MEDS: ASPIRIN 81 MG CHEW TAB PO SCH (09:00)
[2017-07-31] MEDS: BENZONATATE 100 MG CAP PO SCH ×3 (09:00→21:00)
[2017-07-31] MEDS: SODIUM FERRIC GLUCONATE COMPLX 125 MG in SODIUM CHLORIDE 0.9% 100 ML 100 ML IV SCH (09:00)
[2017-07-31] MEDS: METOPROLOL TARTRATE 25 MG TAB PO SCH ×2 (09:00→21:00)
[2017-07-31] MEDS: ENOXAPARIN SODIUM INJ 100 MG/ML SYR SC SCH (09:00)
[2017-07-31] MEDS: DOCUSATE SODIUM 100 MG CAP PO SCH ×2 (09:00→17:58)
[2017-07-31] MEDS: CEFTRIAXONE SOD 1 GM VIAL IV SCH (10:00)
[2017-07-31 10:35] LABS: ABG HCO3 22 mmol/L (23-28); ABG PCO2 53 mmHg (41-51); ABG PH 7.23 (7.31-7.41); ABG PO2 105 mmHg (80-105)
[2017-07-31] MEDS: EPOETIN ALFA 10000 UNIT/ML VIAL SC SCH (12:00)
[2017-07-31 15:53] LABS: ABG HCO3 21 mmol/L (23-28); ABG PCO2 44 mmHg (41-51); ABG PO2 119 mmHg (80-105)
[2017-07-31 19:11] LABS: CREATININE,URINE RANDOM 36.31 mg/dL (63-166)
[2017-07-31] MEDS: DOXAZOSIN MESYLATE 2 MG TAB PO SCH (21:00)
[2017-07-31] MEDS: SIMVASTATIN 40 MG TAB PO SCH (21:00)
[2017-08-01] VITALS (96 sets, daily range): BP systolic 88–131; BP diastolic 54–83
[2017-08-01] MEDS: NITROGLYCERIN 2% OINT 1 GM PKT TOP SCH ×4 (00:06→18:00)
[2017-08-01] MEDS: INSULIN LISPRO 100 UNIT/1 ML 3ML VIAL SQ SCH ×4 (00:19→18:14)
[2017-08-01] MEDS: PIPERACILLIN/TAZO 2.25 GM 50 ML IV SCH ×3 (02:53→17:29)
[2017-08-01] MEDS: PROPOFOL IV EMULSION 10MG/ML 100 ML IV PRN ×2 (04:07→16:11)
[2017-08-01 05:42] LABS: BASOPHILS % 0.1 % (0.0-1.0); HEMATOCRIT 27.3 % (38.2-49.6); HEMOGLOBIN 8.6 g/dL (14.0-18.0); LYMPHOCYTES # (AUTO) 0.6 (1.0-3.2); LYMPHOCYTES % 5.2 % (18.0-39.1); MEAN CORPUSCULAR HEMOGLOBIN 28.7 pg (28-32); MEAN CORPUSCULAR HGB CONC 31.5 g/dL (31-35); MONOCYTES # (AUTO) 0.6 (0.2-0.8); MONOCYTES % 5.2 % (4.4-11.3); NEUTROPHILS # (AUTO) 9.7 (2.1-6.9); NEUTROPHILS % 87.2 % (38.7-80.0); PLATELET COUNT 173 x10e3/uL (140-360)
[2017-08-01] MEDS: METHYLPREDNISOLONE SOD SUCC 125 MG/2ML VIAL IV SCH ×3 (05:55→21:46)
[2017-08-01 06:02] LABS: ALBUMIN 2.7 g/dL (3.5-5.0); ALBUMIN/GLOBULIN RATIO 0.8 (0.8-2.0); ANION GAP 17.7 mmol/L (8-16); CALCIUM 8.5 mg/dL (8.4-10.2); CREATININE, SERUM 3.14 mg/dL (0.72-1.25); POTASSIUM 3.7 mmol/L (3.5-5.1)
--- NOTE | 2017-08-01 06:09 | Diagnostic Imaging Report ---
EXAM: CHEST SINGLE (PORTABLE), AP 1 view INDICATION: Pulmonary edema COMPARISON: None FINDINGS: LINES/TUBES: Stable position of tubes and lines LUNGS: Small left pleural effusion. PLEURA: No effusions or pneumothorax. HEART AND MEDIASTINUM: Normal size and contour. BONES AND SOFT TISSUES: No acute findings. IMPRESSION: No interval change Signed by: Dr. Hina Nunez M.D. on 08/01/2017 6:06 AM
[2017-08-01 06:47] LABS: MAGNESIUM 1.8 MG/DL (1.3-2.1); PHOSPHORUS 5.8 MG/DL (2.3-4.7)
[2017-08-01 07:58] LABS: BAND NEUTROPHILS % (MANUAL) 2 %; LYMPHOCYTES % (MANUAL) 7 % (19-48); NEUTROPHILS % (MANUAL) 91 % (40-74); PLATELET ESTIMATE ADEQUATE; PLATELET MORPHOLOGY COMMENT NORMAL; RBC MORPHOLOGY COMMENT NORMAL
[2017-08-01] MEDS: DOCUSATE SODIUM 100 MG CAP PO SCH ×2 (08:35→14:04)
[2017-08-01] MEDS: BENZONATATE 100 MG CAP PO SCH ×3 (08:35→21:00)
[2017-08-01] MEDS: SODIUM FERRIC GLUCONATE COMPLX 125 MG in SODIUM CHLORIDE 0.9% 100 ML 100 ML IV SCH (08:54)
[2017-08-01] MEDS: ASPIRIN 81 MG CHEW TAB PO SCH (08:54)
[2017-08-01] MEDS: ENOXAPARIN SODIUM INJ 100 MG/ML SYR SC SCH (08:55)
[2017-08-01] MEDS: METOPROLOL TARTRATE 25 MG TAB PO SCH ×2 (09:21→21:45)
[2017-08-01] MEDS: CEFTRIAXONE SOD 1 GM VIAL IV SCH (09:21)
[2017-08-01] MEDS ORDERED: ALBUMIN 25% 12.5GM 100 ML IV ONE (11:34)
[2017-08-01] MEDS ORDERED: SODIUM CHLORIDE 0.9% 1000ML 2,000 ML ONE (13:01)
[2017-08-01] MEDS ORDERED: SODIUM CHLORIDE 0.9% 1000ML 2,000 ML IV PRN (13:15)
[2017-08-01] MEDS ORDERED: SODIUM CHLORIDE 0.9% 250ML 500 ML IV PRN (13:15)
[2017-08-01] MEDS ORDERED: MANNITOL 25% 12.5GM/50 ML VIAL IV PRN (13:15)
[2017-08-01] MEDS ORDERED: HEPARIN SOD (PORCINE) 1000 UNIT/ML SDV IV PRN (13:15)
[2017-08-01] MEDS ORDERED: ALBUMIN 25% 12.5GM 0.25 GM/ML BTL IV PRN (13:15)
[2017-08-01 16:50] LABS: ABG HCO3 29 mmol/L (23-28); ABG PCO2 54 mmHg (41-51); ABG PH 7.34 (7.31-7.41); ABG PO2 82 mmHg (80-105)
[2017-08-01] MEDS: DOXAZOSIN MESYLATE 2 MG TAB PO SCH (21:00)
[2017-08-01] MEDS: SIMVASTATIN 40 MG TAB PO SCH (21:46)
[2017-08-02] VITALS (101 sets, daily range): BP systolic 75–140; BP diastolic 52–83
[2017-08-02] MEDS: INSULIN LISPRO 100 UNIT/1 ML 3ML VIAL SQ SCH ×4 (00:44→18:00)
[2017-08-02] MEDS: PIPERACILLIN/TAZO 2.25 GM 50 ML IV SCH ×3 (02:09→17:01)
[2017-08-02 02:37] LABS: OCCULT BLOOD STOOL POSITIVE (NEGATIVE)
[2017-08-02] MEDS ORDERED: ACETAMINOPHEN 325 MG TAB PO PRN (04:00)
[2017-08-02 04:33] LABS: BASOPHILS % 0.1 % (0.0-1.0); HEMATOCRIT 26.5 % (38.2-49.6); HEMOGLOBIN 8.3 g/dL (14.0-18.0); LYMPHOCYTES % 6.7 % (18.0-39.1); MEAN CORPUSCULAR HEMOGLOBIN 28.7 pg (28-32); MEAN CORPUSCULAR HGB CONC 31.3 g/dL (31-35); MEAN CORPUSCULAR VOLUME 91.7 fL (81-99); MONOCYTES # (AUTO) 0.9 (0.2-0.8); MONOCYTES % 6.5 % (4.4-11.3); NEUTROPHILS # (AUTO) 11.8 (2.1-6.9); PLATELET COUNT 104 x10e3/uL (140-360); RED BLOOD COUNT 2.89 x10e6/uL (4.3-5.7); RED CELL DISTRIBUTION WIDTH 14.6 % (11.7-14.4)
[2017-08-02 04:47] LABS: ANION GAP 17.8 mmol/L (8-16); CALCIUM 8.5 mg/dL (8.4-10.2); CREATININE, SERUM 2.74 mg/dL (0.72-1.25); POTASSIUM 3.8 mmol/L (3.5-5.1)
[2017-08-02] MEDS: NITROGLYCERIN 2% OINT 1 GM PKT TOP SCH ×2 (06:00)
--- NOTE | 2017-08-02 06:33 | Diagnostic Imaging Report ---
EXAM: CHEST SINGLE (PORTABLE), AP 1 view INDICATION: Respiratory failure COMPARISON: AP view of the chest August 01, 2017 FINDINGS: LINES/TUBES: Stable position of right internal jugular vein temporary hemodialysis catheter, endotracheal tube and nasal/orogastric tube. LUNGS: Bibasilar atelectasis. PLEURA: Likely small bilateral pleural effusions. HEART AND MEDIASTINUM: Stable appearance BONES AND SOFT TISSUES: No acute findings. IMPRESSION: No significant interval change. Signed by: Dr. Hina Nunez M.D. on 08/02/2017 6:30 AM
[2017-08-02] MEDS: METHYLPREDNISOLONE SOD SUCC 125 MG/2ML VIAL IV SCH (07:03)
[2017-08-02] MEDS ORDERED: ALBUMIN 5% 250ML IV ONE ×2 (07:45)
[2017-08-02] MEDS: DOCUSATE SODIUM 100 MG CAP PO SCH (08:59)
[2017-08-02] MEDS: FUROSEMIDE INJ 10 MG/ML 4 ML VIAL IV SCH (08:59)
[2017-08-02] MEDS: CEFTRIAXONE SOD 1 GM VIAL IV SCH (09:00)
[2017-08-02] MEDS ORDERED: PANTOPRAZOLE 40 MG 10ML VIAL IV SCH (09:00)
[2017-08-02] MEDS: METOPROLOL TARTRATE 25 MG TAB PO SCH ×2 (09:00→21:00)
[2017-08-02] MEDS: BENZONATATE 100 MG CAP PO SCH (09:00)
[2017-08-02] MEDS: ENOXAPARIN SODIUM INJ 100 MG/ML SYR SC SCH (09:00)
[2017-08-02 09:27] LABS: ABG HCO3 27 mmol/L (23-28); ABG PCO2 58 mmHg (41-51); ABG PH 7.27 (7.31-7.41); ABG PO2 76 mmHg (80-105)
[2017-08-02] MEDS: SODIUM FERRIC GLUCONATE COMPLX 125 MG in SODIUM CHLORIDE 0.9% 100 ML 100 ML IV SCH (11:20)
[2017-08-02] MEDS ORDERED: SODIUM CHLORIDE 0.9% 1000ML 1,000 ML ONE (14:25)
[2017-08-02 14:37] LABS: BASOPHILS % 0.2 % (0.0-1.0); HEMATOCRIT 24.8 % (38.2-49.6); HEMOGLOBIN 7.6 g/dL (14.0-18.0); LYMPHOCYTES % 6.6 % (18.0-39.1); MEAN CORPUSCULAR HEMOGLOBIN 27.9 pg (28-32); MEAN CORPUSCULAR HGB CONC 30.6 g/dL (31-35); MEAN CORPUSCULAR VOLUME 91.2 fL (81-99); MONOCYTES % 6.4 % (4.4-11.3); NEUTROPHILS # (AUTO) 12.9 (2.1-6.9); NEUTROPHILS % 82.5 % (38.7-80.0); PLATELET COUNT 105 x10e3/uL (140-360); RED BLOOD COUNT 2.72 x10e6/uL (4.3-5.7); RED CELL DISTRIBUTION WIDTH 14.6 % (11.7-14.4)
[2017-08-02 14:43] LABS: C DIFFICILE TOXIN A&B AMP PROB NEGATIVE (NEGATIVE)
[2017-08-02] MEDS ORDERED: SODIUM CHLORIDE 0.9% 250ML 250 ML IV ONE ×3 (14:45→15:45)
[2017-08-02 14:47] LABS: INR 1.29; PROTHROMBIN TIME 15.1 seconds (11.9-14.5)
[2017-08-02 14:48] LABS: PARTIAL THROMBOPLASTIN TIME 38.1 seconds (23.8-35.5)
[2017-08-02] MEDS: VASOPRESSIN 100 UNIT in DEXTROSE 5% 100ML 100 ML IV PRN (14:50)
[2017-08-02 14:52] LABS: ANION GAP 17.8 mmol/L (8-16); CALCIUM 8.6 mg/dL (8.4-10.2); CREATININE, SERUM 2.95 mg/dL (0.72-1.25); POTASSIUM 3.8 mmol/L (3.5-5.1)
[2017-08-02 15:31] LABS: BAND NEUTROPHILS % (MANUAL) 1 %; LYMPHOCYTES % (MANUAL) 7 % (19-48); MONOCYTES % (MANUAL) 3 % (3.4-9.0); NEUTROPHILS % (MANUAL) 89 % (40-74); NUCLEATED RED BLOOD CELLS 3
[2017-08-02 15:33] LABS: PLATELET ESTIMATE SLIGHTLY DECREASED; PLATELET MORPHOLOGY COMMENT NORMAL; RBC MORPHOLOGY COMMENT ABNORMAL
[2017-08-02 15:35] LABS: ANISOCYTOSIS MODERATE
[2017-08-02 15:39] LABS: POLYCHROMASIA FEW
[2017-08-02] MEDS ORDERED: PANTOPRAZOLE INJ 40 MG in SODIUM CHLORIDE 0.9% 50ML 50 ML IV SCH (15:45)
[2017-08-02] MEDS ORDERED: PANTOPRAZOL 200MG/SOD CHL 0.9% 250 ML IV SCH (16:00)
[2017-08-02] MEDS: SIMVASTATIN 40 MG TAB PO SCH (21:00)
[2017-08-02] MEDS ORDERED: METHYLPREDNISOLONE SOD SUCC 125 MG/2ML VIAL IV SCH ×2 (21:00)
[2017-08-02] MEDS: PROPOFOL IV EMULSION 10MG/ML 100 ML IV PRN ×2 (22:12→23:15)
[2017-08-02] MEDS: METHYLPREDNISOLONE SOD SUCC 40 MG/ML VIAL IV SCH (22:12)
[2017-08-03] VITALS (133 sets, daily range): BP systolic 58–158; BP diastolic 33–123
[2017-08-03 00:32] LABS: HEMATOCRIT 28.6 % (38.2-49.6); HEMOGLOBIN 9.4 g/dL (14.0-18.0)
[2017-08-03] MEDS: PIPERACILLIN/TAZO 2.25 GM 50 ML IV SCH ×4 (03:13→21:43)
[2017-08-03 05:30] LABS: BASOPHILS % 0.2 % (0.0-1.0); HEMATOCRIT 28.5 % (38.2-49.6); HEMOGLOBIN 9.3 g/dL (14.0-18.0); LYMPHOCYTES # (AUTO) 1.1 (1.0-3.2); LYMPHOCYTES % 6.6 % (18.0-39.1); MEAN CORPUSCULAR HEMOGLOBIN 29.2 pg (28-32); MEAN CORPUSCULAR HGB CONC 32.6 g/dL (31-35); MEAN CORPUSCULAR VOLUME 89.3 fL (81-99); MONOCYTES # (AUTO) 1.1 (0.2-0.8); MONOCYTES % 6.3 % (4.4-11.3); PLATELET COUNT 115 x10e3/uL (140-360); RED BLOOD COUNT 3.19 x10e6/uL (4.3-5.7); RED CELL DISTRIBUTION WIDTH 15.2 % (11.7-14.4)
[2017-08-03 05:51] LABS: ALBUMIN 2.9 g/dL (3.5-5.0); ANION GAP 17.8 mmol/L (8-16); CALCIUM 8.5 mg/dL (8.4-10.2); CREATININE, SERUM 3.02 mg/dL (0.72-1.25); POTASSIUM 3.8 mmol/L (3.5-5.1)
[2017-08-03] MEDS: INSULIN LISPRO 100 UNIT/1 ML 3ML VIAL SQ SCH ×5 (06:00→23:40)
--- NOTE | 2017-08-03 06:05 | Diagnostic Imaging Report ---
EXAM: CHEST SINGLE (PORTABLE), AP 1 view INDICATION: Respiratory failure COMPARISON: AP view of the chest August 02, 2017 FINDINGS: LINES/TUBES: Stable right internal jugular vein temporary hemodialysis catheter, endotracheal tube and nasal/orogastric tube LUNGS: Bibasilar atelectasis PLEURA: Small left pleural effusion HEART AND MEDIASTINUM: Normal size and contour. BONES AND SOFT TISSUES: No acute findings. IMPRESSION: No interval change Signed by: Dr. Hina Nunez M.D. on 08/03/2017 6:02 AM
[2017-08-03] MEDS: PROPOFOL IV EMULSION 10MG/ML 100 ML IV PRN ×3 (06:55→17:57)
[2017-08-03 07:49] LABS: LYMPHOCYTES % (MANUAL) 9 % (19-48); MONOCYTES % (MANUAL) 4 % (3.4-9.0); NEUTROPHILS % (MANUAL) 87 % (40-74); NUCLEATED RED BLOOD CELLS 3
[2017-08-03 07:51] LABS: ANISOCYTOSIS SLIGHT; HYPOCHROMASIA SLIGHT; PLATELET ESTIMATE SLIGHTLY DECREASED; PLATELET MORPHOLOGY COMMENT NORMAL; POIKILOCYTOSIS SLIGHT
[2017-08-03 07:52] LABS: RBC MORPHOLOGY COMMENT ABNORMAL
[2017-08-03] MEDS: METOPROLOL TARTRATE 25 MG TAB PO SCH ×2 (09:00→21:00)
[2017-08-03] MEDS: METHYLPREDNISOLONE SOD SUCC 40 MG/ML VIAL IV SCH ×2 (10:21→21:44)
[2017-08-03] MEDS: SODIUM FERRIC GLUCONATE COMPLX 125 MG in SODIUM CHLORIDE 0.9% 100 ML 100 ML IV SCH (10:21)
[2017-08-03] MEDS: FUROSEMIDE INJ 10 MG/ML 4 ML VIAL IV SCH (10:21)
[2017-08-03] MEDS: EPOETIN ALFA 10000 UNIT/ML VIAL SC SCH (12:30)
[2017-08-03] MEDS ORDERED: PROPOFOL IV EMULSION 10 MG/ML 20 ML VIAL ONE (14:13)
[2017-08-03] MEDS ORDERED: LIDOCAINE HCL 2% LOCAL INJ 5 ML SDV VIAL INJ ONE (14:13)
[2017-08-03 14:15] LABS: ABG HCO3 23 mmol/L (23-28); ABG PCO2 40 mmHg (41-51); ABG PH 7.38 (7.31-7.41); ABG PO2 92 mmHg (80-105)
[2017-08-03] MEDS ORDERED: SODIUM CHLORIDE 0.9% 500ML 500 ML ONE (14:24)
[2017-08-03] MEDS: PANTOPRAZOL 40MG/SOD CHL 0.9% 50 ML IV SCH ×2 (15:49→21:44)
[2017-08-03] MEDS ORDERED: ALBUMIN 25% 12.5GM 50 ML IV ONE (16:01)
--- NOTE | 2017-08-03 16:11 | Operative Report ---
DATE OF PROCEDURE: August 03, 2017 PROCEDURE: Upper endoscopy with epinephrine injections, Gold Probe as well as Endo Clip. PREOPERATIVE DIAGNOSIS: Gastrointestinal bleed. POSTOPERATIVE DIAGNOSES 1. Gastric ulcers. 2. Hiatal hernia. PROCEDURE IN DETAIL: The risks and benefits were discussed with the family prior to the procedure. The family understands the risks of bleeding, infection, perforation, as well as medication reaction. Consent was signed and secured. The patient is in the ICU. The procedure was done at bedside. After the patient was sedated comfortably, an Olympus gastroscope was inserted in the mouth. Evaluation of the vocal cords was normal. Evaluation of the esophagus was normal. Evaluation of the stomach in the forward and retroflex fashion showed evidence of hiatal hernia as well as a gastric ulcer with clot attached. This was then treated with Gold Probe as well as Endo Clip with good hemostasis. The patient tolerated the procedure without any problem. RECOMMENDATIONS: Continue proton pump inhibitor at this point as well as Carafate. Follow labs and clinically. Hold anticoagulation. ABHINAV ONTIVEROS MD Job#: [id number] cc:LAYLA RIVERA MD
[2017-08-03] MEDS: VASOPRESSIN 100 UNIT in DEXTROSE 5% 100ML 100 ML IV PRN (16:38)
[2017-08-03] MEDS ORDERED: NOREPINEPHRINE 8 MG/D5W 250 ML 250 ML ONE (16:39)
[2017-08-03] MEDS: SUCRALFATE 1 GM/10 ML SUSP NG SCH (18:32)
[2017-08-03] MEDS: SIMVASTATIN 40 MG TAB PO SCH (21:44)
[2017-08-04] VITALS (92 sets, daily range): BP systolic 68–156; BP diastolic 46–92
[2017-08-04 00:19] LABS: HEMOGLOBIN 8.8 g/dL (14.0-18.0)
[2017-08-04] MEDS: PROPOFOL IV EMULSION 10MG/ML 100 ML IV PRN (00:35)
[2017-08-04] MEDS: SUCRALFATE 1 GM/10 ML SUSP NG SCH ×4 (01:12→18:47)
[2017-08-04] MEDS: PANTOPRAZOL 40MG/SOD CHL 0.9% 50 ML IV SCH ×6 (03:16→23:35)
[2017-08-04] MEDS: PIPERACILLIN/TAZO 2.25 GM 50 ML IV SCH ×3 (03:16→18:47)
[2017-08-04 05:00] LABS: BASOPHILS # (AUTO) 0.1 (0.0-0.1); BASOPHILS % 0.2 % (0.0-1.0); HEMATOCRIT 27.1 % (38.2-49.6); HEMOGLOBIN 8.8 g/dL (14.0-18.0); LYMPHOCYTES # (AUTO) 1.2 (1.0-3.2); LYMPHOCYTES % 5.5 % (18.0-39.1); MEAN CORPUSCULAR HEMOGLOBIN 28.8 pg (28-32); MEAN CORPUSCULAR HGB CONC 32.5 g/dL (31-35); MEAN CORPUSCULAR VOLUME 88.6 fL (81-99); MONOCYTES # (AUTO) 1.1 (0.2-0.8); MONOCYTES % 5.2 % (4.4-11.3); NEUTROPHILS # (AUTO) 17.8 (2.1-6.9); NEUTROPHILS % 84.2 % (38.7-80.0); PLATELET COUNT 54 x10e3/uL (140-360); RED BLOOD COUNT 3.06 x10e6/uL (4.3-5.7)
[2017-08-04 05:45] LABS: ALBUMIN 3.1 g/dL (3.5-5.0); ALBUMIN/GLOBULIN RATIO 1.1 (0.8-2.0); ANION GAP 18.6 mmol/L (8-16); CALCIUM 8.5 mg/dL (8.4-10.2); CREATININE, SERUM 2.27 mg/dL (0.72-1.25); POTASSIUM 3.6 mmol/L (3.5-5.1)
[2017-08-04] MEDS: INSULIN LISPRO 100 UNIT/1 ML 3ML VIAL SQ SCH ×3 (06:00→18:00)
--- NOTE | 2017-08-04 06:35 | Diagnostic Imaging Report ---
CHEST SINGLE (PORTABLE), 08/04/2017 6:30 AM Technique: CHEST SINGLE (PORTABLE) Comparison: 08/03/2017 Clinical history: Respiratory failure Findings: See Impression Impression: 1. Lines/Tubes: Stable right dialysis catheter, ET tube about 7 cm above the karen, and visualized subdiaphragmatic NG tube. 2. Stable cardiomediastinal silhouette. 3. Unchanged bibasilar atelectasis, aspiration or infection. Stable small left effusion. Signed by: Dr Asha Barrett MD on 08/04/2017 6:32 AM
[2017-08-04 07:56] LABS: BAND NEUTROPHILS % (MANUAL) 2 %; LYMPHOCYTES % (MANUAL) 6 % (19-48); METAMYELOCYTES % (MANUAL) 3 % (0-0); MONOCYTES % (MANUAL) 4 % (3.4-9.0); NEUTROPHILS % (MANUAL) 85 % (40-74)
[2017-08-04 07:58] LABS: ANISOCYTOSIS SLIGHT; HYPOCHROMASIA SLIGHT; PLATELET ESTIMATE MODERATELY DECREASED; PLATELET MORPHOLOGY COMMENT FEW GIANT; POIKILOCYTOSIS SLIGHT; RBC MORPHOLOGY COMMENT NORMAL
[2017-08-04] MEDS: METOPROLOL TARTRATE 25 MG TAB PO SCH ×2 (09:00→21:00)
[2017-08-04 09:31] LABS: ABG HCO3 28 mmol/L (23-28); ABG PCO2 51 mmHg (41-51); ABG PH 7.35 (7.31-7.41); ABG PO2 115 mmHg (80-105)
[2017-08-04] MEDS: METHYLPREDNISOLONE SOD SUCC 40 MG/ML VIAL IV SCH ×2 (09:58→21:33)
[2017-08-04] MEDS: FUROSEMIDE INJ 10 MG/ML 4 ML VIAL IV SCH (09:58)
[2017-08-04] MEDS: SODIUM FERRIC GLUCONATE COMPLX 125 MG in SODIUM CHLORIDE 0.9% 100 ML 100 ML IV SCH (10:30)
[2017-08-04 11:25] LABS: BILIRUBIN,URINE NEGATIVE (NEGATIVE); CLARITY,URINE CLEAR (CLEAR); COLOR,URINE YELLOW (YELLOW); KETONES,URINE NEGATIVE (NEGATIVE); LEUKOCYTE ESTERASE ,URINE NEGATIVE (NEGATIVE); NITRITE,URINE NEGATIVE (NEGATIVE); PROTEIN,URINE DIPSTICK 1+ (NEGATIVE); URINE UROBILINOGEN 0.2 mg/dL (0.2 - 1)
[2017-08-04 11:34] LABS: AMORPHOUS SEDIMENT,URINE RARE (FEW); EPITHELIAL CELLS,URINE RARE /LPF
[2017-08-04] MEDS ORDERED: FUROSEMIDE INJ 10 MG/ML 4 ML VIAL IV ONE (12:15)
[2017-08-04] MEDS ORDERED: ALBUMIN 25% 12.5GM 0.25 GM/ML BTL IV ONE (12:15)
[2017-08-04] MEDS: SIMVASTATIN 40 MG TAB PO SCH (21:33)
[2017-08-05] VITALS (93 sets, daily range): BP systolic 75–132; BP diastolic 50–107
[2017-08-05] MEDS: SUCRALFATE 1 GM/10 ML SUSP NG SCH ×5 (00:32→20:36)
[2017-08-05] MEDS: PIPERACILLIN/TAZO 2.25 GM 50 ML IV SCH ×3 (02:44→17:49)
[2017-08-05 05:12] LABS: BASOPHILS % 0.2 % (0.0-1.0); HEMATOCRIT 26.9 % (38.2-49.6); HEMOGLOBIN 8.5 g/dL (14.0-18.0); LYMPHOCYTES # (AUTO) 1.2 (1.0-3.2); LYMPHOCYTES % 5.7 % (18.0-39.1); MEAN CORPUSCULAR HEMOGLOBIN 28.8 pg (28-32); MEAN CORPUSCULAR HGB CONC 31.6 g/dL (31-35); MEAN CORPUSCULAR VOLUME 91.2 fL (81-99); MONOCYTES # (AUTO) 1.2 (0.2-0.8); MONOCYTES % 5.6 % (4.4-11.3); NEUTROPHILS # (AUTO) 17.9 (2.1-6.9); PLATELET COUNT 82 x10e3/uL (140-360); RED BLOOD COUNT 2.95 x10e6/uL (4.3-5.7); RED CELL DISTRIBUTION WIDTH 15.1 % (11.7-14.4)
[2017-08-05 05:34] LABS: ALBUMIN 3.2 g/dL (3.5-5.0); ALBUMIN/GLOBULIN RATIO 1.1 (0.8-2.0); ANION GAP 18.6 mmol/L (8-16); CALCIUM 8.3 mg/dL (8.4-10.2); CREATININE, SERUM 2.91 mg/dL (0.72-1.25); POTASSIUM 3.6 mmol/L (3.5-5.1)
[2017-08-05] MEDS: INSULIN LISPRO 100 UNIT/1 ML 3ML VIAL SQ SCH ×6 (05:57→20:37)
[2017-08-05] MEDS: PANTOPRAZOL 40MG/SOD CHL 0.9% 50 ML IV SCH ×4 (05:57→21:04)
--- NOTE | 2017-08-05 06:07 | Diagnostic Imaging Report ---
CHEST SINGLE (PORTABLE), 08/05/2017 6:30 AM Technique: CHEST SINGLE (PORTABLE) Comparison: Previous day Clinical history: Respiratory failure Findings: See Impression Impression: 1. Lines/Tubes: Stable right dialysis catheter. Removal of ET tube and NG tube. 2. Rotation precludes assessment of the cardiomediastinal silhouette. 3. Increased left basilar opacity which may reflect aspiration, infection, or atelectasis with associated pleural effusion. Attention on follow-up with more centered positioning. Signed by: Dr Asha Barrett MD on 08/05/2017 6:04 AM
[2017-08-05 08:07] LABS: HYPOCHROMASIA SLIGHT; LYMPHOCYTES % (MANUAL) 5 % (19-48); METAMYELOCYTES % (MANUAL) 2 % (0-0); MONOCYTES % (MANUAL) 4 % (3.4-9.0); NEUTROPHILS % (MANUAL) 89 % (40-74); PLATELET ESTIMATE SLIGHTLY DECREASED; RBC MORPHOLOGY COMMENT NORMAL
[2017-08-05 08:08] LABS: PLATELET MORPHOLOGY COMMENT FEW LARGE; POLYCHROMASIA FEW
[2017-08-05] MEDS: METOPROLOL TARTRATE 25 MG TAB PO SCH ×2 (09:24→20:36)
[2017-08-05] MEDS: FUROSEMIDE INJ 10 MG/ML 4 ML VIAL IV SCH (09:24)
[2017-08-05] MEDS: METHYLPREDNISOLONE SOD SUCC 40 MG/ML VIAL IV SCH ×2 (09:47→21:04)
[2017-08-05] MEDS: EPOETIN ALFA 10000 UNIT/ML VIAL SC SCH (12:07)
[2017-08-05] MEDS ORDERED: HALOPERIDOL LACTATE 5 MG/ML VIAL ONE (13:23)
[2017-08-05] MEDS ORDERED: HALOPERIDOL LACTATE 5 MG/ML VIAL IM STA (13:27)
[2017-08-05] MEDS ORDERED: HALOPERIDOL LACTATE 5 MG/ML VIAL IM ONE (14:00)
[2017-08-05] MEDS: ALBUTEROL/IPRATROPIUM 3 ML NEB NEB PRN (14:25)
[2017-08-05] MEDS ORDERED: METOPROLOL TARTRATE INJ 1 MG/ML VIAL IV ONE (17:45)
[2017-08-05] MEDS: SIMVASTATIN 40 MG TAB PO SCH (20:36)
[2017-08-05] MEDS: ESMOLOL HCL 2500MG/250 ML 250 ML IV PRN (21:05)
[2017-08-05 22:36] LABS: HEMATOCRIT 25.9 % (38.2-49.6); HEMOGLOBIN 8.2 g/dL (14.0-18.0)
[2017-08-06] VITALS (115 sets, daily range): BP systolic 63–125; BP diastolic 48–99
[2017-08-06] MEDS: PANTOPRAZOL 40MG/SOD CHL 0.9% 50 ML IV SCH ×5 (02:03→20:28)
[2017-08-06] MEDS: PIPERACILLIN/TAZO 2.25 GM 50 ML IV SCH ×3 (02:04→17:37)
[2017-08-06] MEDS: ESMOLOL HCL 2500MG/250 ML 250 ML IV PRN ×2 (05:18→23:35)
[2017-08-06] MEDS: VASOPRESSIN 100 UNIT in DEXTROSE 5% 100ML 100 ML IV PRN (05:19)
--- NOTE | 2017-08-06 06:04 | Diagnostic Imaging Report ---
CHEST SINGLE (PORTABLE), 08/06/2017 6:30 AM Technique: CHEST SINGLE (PORTABLE) Comparison: Previous day Clinical history: Respiratory failure Findings: See Impression Impression: 1. Lines/Tubes: Stable right dialysis catheter. Removal of ET tube and NG tube. 2. Rotated radiograph with stable cardiomediastinal silhouette. 3. Central vascular congestion. Stable left basilar opacity which may reflect aspiration, infection, or atelectasis with associated pleural effusion. Signed by: Dr Asha Barrett MD on 08/06/2017 6:00 AM
[2017-08-06 06:39] LABS: BASOPHILS % 0.1 % (0.0-1.0); HEMATOCRIT 26.1 % (38.2-49.6); HEMOGLOBIN 8.1 g/dL (14.0-18.0); LYMPHOCYTES # (AUTO) 1.3 (1.0-3.2); LYMPHOCYTES % 8.4 % (18.0-39.1); MEAN CORPUSCULAR HEMOGLOBIN 28.7 pg (28-32); MEAN CORPUSCULAR VOLUME 92.6 fL (81-99); MONOCYTES # (AUTO) 1.1 (0.2-0.8); NEUTROPHILS # (AUTO) 12.8 (2.1-6.9); NEUTROPHILS % 81.6 % (38.7-80.0); PLATELET COUNT 61 x10e3/uL (140-360); RED BLOOD COUNT 2.82 x10e6/uL (4.3-5.7)
[2017-08-06 06:53] LABS: ALBUMIN 3.4 g/dL (3.5-5.0); ALBUMIN/GLOBULIN RATIO 1.2 (0.8-2.0); ANION GAP 17.8 mmol/L (8-16); CALCIUM 8.8 mg/dL (8.4-10.2); CREATININE, SERUM 2.35 mg/dL (0.72-1.25); POTASSIUM 3.8 mmol/L (3.5-5.1)
[2017-08-06] MEDS: SUCRALFATE 1 GM/10 ML SUSP NG SCH ×4 (06:55→20:28)
[2017-08-06] MEDS: INSULIN LISPRO 100 UNIT/1 ML 3ML VIAL SQ SCH ×4 (07:30→20:18)
[2017-08-06] MEDS: ALBUTEROL/IPRATROPIUM 3 ML NEB NEB PRN ×3 (07:33→18:25)
[2017-08-06 07:46] LABS: LYMPHOCYTES % (MANUAL) 13 % (19-48); MONOCYTES % (MANUAL) 4 % (3.4-9.0); MYELOCYTES % (MANUAL) 1 % (0-0); NEUTROPHILS % (MANUAL) 81 % (40-74); NUCLEATED RED BLOOD CELLS 1; PROMYELOCYTES % (MANUAL) 1 % (0-0)
[2017-08-06 07:47] LABS: ANISOCYTOSIS SLIGHT; HYPOCHROMASIA SLIGHT; PLATELET ESTIMATE MODERATELY DECREASED; PLATELET MORPHOLOGY COMMENT FEW LARGE; POIKILOCYTOSIS SLIGHT; RBC MORPHOLOGY COMMENT NORMAL
[2017-08-06] MEDS ORDERED: FUROSEMIDE INJ 10 MG/ML 4 ML VIAL IV ONE (08:50)
[2017-08-06] MEDS: METHYLPREDNISOLONE SOD SUCC 40 MG/ML VIAL IV SCH ×2 (08:51→20:28)
[2017-08-06] MEDS: FUROSEMIDE INJ 10 MG/ML 4 ML VIAL IV SCH ×2 (08:51→13:45)
[2017-08-06] MEDS: METOPROLOL TARTRATE 25 MG TAB PO SCH ×3 (09:00→20:28)
[2017-08-06] MEDS ORDERED: SODIUM CHLORIDE 0.9% 250ML 250 ML IV PRN (09:30)
[2017-08-06] MEDS ORDERED: FUROSEMIDE INJ 10 MG/ML 2 ML VIAL IV PRN (09:30)
[2017-08-06] MEDS: METOPROLOL TARTRATE INJ 1 MG/ML VIAL IV PRN ×3 (10:30→22:15)
--- NOTE | 2017-08-06 16:59 | Diagnostic Imaging Report ---
PROCEDURE:MODIFIED BA. SWALLOW COMPARISON:None. INDICATIONS:Suspected aspiration. DISCUSSION: Fluoroscopic examination was performed in conjunction with speech pathology during swallowing of a variety of thin and thick liquid consistencies. RADIATION DOSE: Total Time: 2 minute 59 seconds Cumulative area dose product: 468.35 cGym\S\2 Cumulative air kerma: 13.08 mGy FINDINGS: PREMATURE SPILLAGE: Over the base of the tongue: None. To vallecula: None. To pyriform sinus: None. LARYNGEAL PENETRATION: Thin liquids and nectar liquids after solid solidly across with Max vallecula residue ASPIRATION: Thin liquids and nectar liquids after solid trials with Max vallecula residue. RESIDUE: VALLECULA: Mild to moderate with thin. Max with solid PYRIFORM SINUS: None PHARYNGEAL WALL: Mild to moderate with thin BASE OF TONGUE: None CONCLUSION:Penetration and aspiration as described above. Please see report from speech pathology for complete details. Dictated by: Rodney Lamas M.D. on 08/06/2017 at 17:00 Electronically approved by: Rodney Lamas M.D. on 08/06/2017 at 17:00
[2017-08-06] MEDS: SIMVASTATIN 40 MG TAB PO SCH (20:28)
[2017-08-07] VITALS (107 sets, daily range): BP systolic 63–132; BP diastolic 42–107
[2017-08-07] MEDS: ALBUTEROL/IPRATROPIUM 3 ML NEB NEB PRN ×3 (02:25→14:57)
[2017-08-07] MEDS: PIPERACILLIN/TAZO 2.25 GM 50 ML IV SCH ×3 (02:42→18:43)
[2017-08-07] MEDS: PANTOPRAZOL 40MG/SOD CHL 0.9% 50 ML IV SCH ×5 (02:42→21:06)
[2017-08-07 06:40] LABS: BASOPHILS % 0.2 % (0.0-1.0); HEMATOCRIT 29.8 % (38.2-49.6); HEMOGLOBIN 9.6 g/dL (14.0-18.0); LYMPHOCYTES # (AUTO) 1.1 (1.0-3.2); LYMPHOCYTES % 7.4 % (18.0-39.1); MEAN CORPUSCULAR HGB CONC 32.2 g/dL (31-35); MONOCYTES # (AUTO) 1.2 (0.2-0.8); MONOCYTES % 8.3 % (4.4-11.3); NEUTROPHILS # (AUTO) 11.6 (2.1-6.9); NEUTROPHILS % 80.9 % (38.7-80.0); PLATELET COUNT 96 x10e3/uL (140-360); RED BLOOD COUNT 3.31 x10e6/uL (4.3-5.7); RED CELL DISTRIBUTION WIDTH 15.9 % (11.7-14.4)
[2017-08-07 07:12] LABS: ANION GAP 18.6 mmol/L (8-16); CALCIUM 8.7 mg/dL (8.4-10.2); CREATININE, SERUM 3.15 mg/dL (0.72-1.25); POTASSIUM 3.6 mmol/L (3.5-5.1)
[2017-08-07] MEDS: INSULIN LISPRO 100 UNIT/1 ML 3ML VIAL SQ SCH ×4 (08:35→21:05)
[2017-08-07] MEDS ORDERED: DIGOXIN INJ 0.25 MG/ML 2 ML AMP IV ONE (08:45)
[2017-08-07] MEDS: FUROSEMIDE INJ 10 MG/ML 4 ML VIAL IV SCH ×2 (09:00→18:43)
[2017-08-07] MEDS: METOPROLOL TARTRATE 25 MG TAB PO SCH ×2 (09:00→21:05)
[2017-08-07] MEDS: METHYLPREDNISOLONE SOD SUCC 40 MG/ML VIAL IV SCH ×2 (09:00→21:06)
[2017-08-07] MEDS: SUCRALFATE 1 GM/10 ML SUSP NG SCH ×4 (10:20→21:05)
[2017-08-07] MEDS ORDERED: HEPARIN SOD (PORCINE) 1000 UNIT/ML SDV IV PRN (16:00)
[2017-08-07] MEDS: SIMVASTATIN 40 MG TAB PO SCH (21:05)
[2017-08-07] MEDS: LORAZEPAM 0.5 MG TAB PO PRN (23:00)
[2017-08-08] VITALS (85 sets, daily range): BP systolic 78–135; BP diastolic 60–113
[2017-08-08] MEDS: PIPERACILLIN/TAZO 2.25 GM 50 ML IV SCH ×3 (03:14→18:08)
[2017-08-08] MEDS: PANTOPRAZOL 40MG/SOD CHL 0.9% 50 ML IV SCH ×2 (03:14→08:43)
[2017-08-08 06:10] LABS: ANION GAP 16.6 mmol/L (8-16); CALCIUM 8.7 mg/dL (8.4-10.2); CREATININE, SERUM 2.5 mg/dL (0.72-1.25); POTASSIUM 3.6 mmol/L (3.5-5.1)
[2017-08-08] MEDS: ALBUTEROL/IPRATROPIUM 3 ML NEB NEB PRN ×3 (06:38→14:40)
[2017-08-08 07:24] LABS: BASOPHILS % 0.2 % (0.0-1.0); HEMATOCRIT 29.8 % (38.2-49.6); HEMOGLOBIN 9.4 g/dL (14.0-18.0); LYMPHOCYTES # (AUTO) 0.9 (1.0-3.2); LYMPHOCYTES % 5.8 % (18.0-39.1); MEAN CORPUSCULAR HEMOGLOBIN 29.1 pg (28-32); MEAN CORPUSCULAR HGB CONC 31.5 g/dL (31-35); MEAN CORPUSCULAR VOLUME 92.3 fL (81-99); MONOCYTES # (AUTO) 0.9 (0.2-0.8); MONOCYTES % 5.6 % (4.4-11.3); NEUTROPHILS # (AUTO) 13.7 (2.1-6.9); NEUTROPHILS % 86.5 % (38.7-80.0); PLATELET COUNT 69 x10e3/uL (140-360); RED BLOOD COUNT 3.23 x10e6/uL (4.3-5.7); RED CELL DISTRIBUTION WIDTH 16.1 % (11.7-14.4)
[2017-08-08] MEDS: INSULIN LISPRO 100 UNIT/1 ML 3ML VIAL SQ SCH ×4 (07:30→21:00)
[2017-08-08] MEDS: FUROSEMIDE INJ 10 MG/ML 4 ML VIAL IV SCH ×2 (08:43→18:08)
[2017-08-08] MEDS: METOPROLOL TARTRATE 25 MG TAB PO SCH ×2 (08:43→21:31)
[2017-08-08] MEDS: SUCRALFATE 1 GM/10 ML SUSP NG SCH ×4 (08:43→21:30)
[2017-08-08] MEDS: METHYLPREDNISOLONE SOD SUCC 40 MG/ML VIAL IV SCH ×2 (08:43→21:30)
[2017-08-08] MEDS: ESMOLOL HCL 2500MG/250 ML 250 ML IV PRN ×2 (11:08)
[2017-08-08] MEDS: LORAZEPAM 0.5 MG TAB PO PRN ×2 (16:59→21:41)
[2017-08-08] MEDS: SIMVASTATIN 40 MG TAB PO SCH (21:31)
[2017-08-09] VITALS (86 sets, daily range): BP systolic 94–136; BP diastolic 62–95
[2017-08-09] MEDS: PIPERACILLIN/TAZO 2.25 GM 50 ML IV SCH ×3 (02:24→18:27)
[2017-08-09 06:04] LABS: BASOPHILS % 0.1 % (0.0-1.0); HEMATOCRIT 29.5 % (38.2-49.6); HEMOGLOBIN 9.2 g/dL (14.0-18.0); LYMPHOCYTES # (AUTO) 0.7 (1.0-3.2); MEAN CORPUSCULAR HEMOGLOBIN 29.2 pg (28-32); MEAN CORPUSCULAR HGB CONC 31.2 g/dL (31-35); MEAN CORPUSCULAR VOLUME 93.7 fL (81-99); MONOCYTES # (AUTO) 0.6 (0.2-0.8); MONOCYTES % 4.5 % (4.4-11.3); NEUTROPHILS % 88.9 % (38.7-80.0); PLATELET COUNT 90 x10e3/uL (140-360); RED BLOOD COUNT 3.15 x10e6/uL (4.3-5.7)
[2017-08-09 06:35] LABS: ALBUMIN 3.7 g/dL (3.5-5.0); ALBUMIN/GLOBULIN RATIO 1.5 (0.8-2.0); ANION GAP 17.3 mmol/L (8-16); CALCIUM 8.8 mg/dL (8.4-10.2); CREATININE, SERUM 2.91 mg/dL (0.72-1.25); MAGNESIUM 1.6 MG/DL (1.3-2.1); PHOSPHORUS 4.2 MG/DL (2.3-4.7); POTASSIUM 3.3 mmol/L (3.5-5.1)
[2017-08-09] MEDS: INSULIN LISPRO 100 UNIT/1 ML 3ML VIAL SQ SCH (08:11)
[2017-08-09] MEDS: SUCRALFATE 1 GM/10 ML SUSP NG SCH ×4 (08:27→21:12)
[2017-08-09] MEDS: METOPROLOL TARTRATE 25 MG TAB PO SCH ×2 (09:00→21:46)
[2017-08-09] MEDS: METHYLPREDNISOLONE SOD SUCC 40 MG/ML VIAL IV SCH ×2 (10:08→21:12)
[2017-08-09] MEDS: PANTOPRAZOLE 40 MG 10ML VIAL IV SCH (10:08)
[2017-08-09] MEDS: FUROSEMIDE INJ 10 MG/ML 4 ML VIAL IV SCH ×2 (10:08→18:27)
[2017-08-09] MEDS: ALBUTEROL/IPRATROPIUM 3 ML NEB NEB PRN (11:05)
[2017-08-09] MEDS: SIMVASTATIN 40 MG TAB PO SCH (21:12)
[2017-08-09] MEDS: LORAZEPAM 0.5 MG TAB PO PRN (21:14)
[2017-08-09] MEDS ORDERED: POTASSIUM CHLORIDE 20MEQ/15ML UDC PO ONE (21:30)
[2017-08-10] VITALS (93 sets, daily range): BP systolic 50–141; BP diastolic 32–107
[2017-08-10] MEDS: PIPERACILLIN/TAZO 2.25 GM 50 ML IV SCH ×3 (02:08→17:55)
[2017-08-10 05:55] LABS: BASOPHILS % 0.1 % (0.0-1.0); HEMATOCRIT 35.6 % (38.2-49.6); HEMOGLOBIN 11.2 g/dL (14.0-18.0); LYMPHOCYTES # (AUTO) 0.8 (1.0-3.2); LYMPHOCYTES % 5.3 % (18.0-39.1); MEAN CORPUSCULAR HEMOGLOBIN 28.9 pg (28-32); MEAN CORPUSCULAR HGB CONC 31.5 g/dL (31-35); MEAN CORPUSCULAR VOLUME 91.8 fL (81-99); MONOCYTES # (AUTO) 0.7 (0.2-0.8); MONOCYTES % 4.6 % (4.4-11.3); NEUTROPHILS % 88.9 % (38.7-80.0); PLATELET COUNT 126 x10e3/uL (140-360); RED BLOOD COUNT 3.88 x10e6/uL (4.3-5.7); RED CELL DISTRIBUTION WIDTH 16.2 % (11.7-14.4)
[2017-08-10 06:28] LABS: ALBUMIN 3.8 g/dL (3.5-5.0); ALBUMIN/GLOBULIN RATIO 1.4 (0.8-2.0); ANION GAP 18.2 mmol/L (8-16); CREATININE, SERUM 3.39 mg/dL (0.72-1.25); POTASSIUM 3.2 mmol/L (3.5-5.1)
--- NOTE | 2017-08-10 06:33 | Diagnostic Imaging Report ---
CHEST SINGLE (PORTABLE), 08/10/2017 6:30 AM Technique: CHEST SINGLE (PORTABLE) Comparison: Previous day Clinical history: Respiratory failure Findings: See Impression Impression: 1. Lines/Tubes: Stable right dialysis catheter. 2. Stable cardiomediastinal silhouette. 3. Stable left basilar opacity which may reflect aspiration, infection, or atelectasis with associated pleural effusion. New right basilar opacity, possibly aspiration or atelectasis. Signed by: Dr Asha Barrett MD on 08/10/2017 6:30 AM
[2017-08-10] MEDS: ALBUTEROL/IPRATROPIUM 3 ML NEB NEB PRN ×3 (07:29→20:25)
[2017-08-10] MEDS: METOPROLOL TARTRATE 25 MG TAB PO SCH ×2 (08:30→23:06)
[2017-08-10] MEDS: SUCRALFATE 1 GM/10 ML SUSP NG SCH ×4 (08:30→23:05)
[2017-08-10] MEDS: FUROSEMIDE INJ 10 MG/ML 4 ML VIAL IV SCH ×2 (08:30→17:54)
[2017-08-10] MEDS: PANTOPRAZOLE 40 MG 10ML VIAL IV SCH (08:30)
[2017-08-10] MEDS: METHYLPREDNISOLONE SOD SUCC 40 MG/ML VIAL IV SCH ×2 (08:30→23:07)
[2017-08-10] MEDS ORDERED: POTASSIUM CHLORIDE 20MEQ/100ML 100 ML IV ONE (12:15)
[2017-08-10] MEDS ORDERED: SODIUM BICARBONATE 8.4% INJ 50 ML SYR ONE (17:52)
[2017-08-10] MEDS: LORAZEPAM 0.5 MG TAB PO PRN (19:39)
[2017-08-10] MEDS: METOPROLOL TARTRATE INJ 1 MG/ML VIAL IV PRN (20:34)
[2017-08-10] MEDS: ACETAMINOPHEN 325 MG TAB PO PRN (21:00)
[2017-08-10] MEDS: SIMVASTATIN 40 MG TAB PO SCH (23:06)
[2017-08-10] MEDS: ESMOLOL HCL 2500MG/250 ML 250 ML IV PRN (23:07)
[2017-08-10] MEDS: BALSAM PERU/CASTOR OIL 60 GM OINT...G. TP SCH (23:07)
[2017-08-11] VITALS (47 sets, daily range): BP systolic 58–224; BP diastolic 24–183
[2017-08-11] MEDS: LORAZEPAM 0.5 MG TAB PO PRN (02:50)
[2017-08-11] MEDS: ACETAMINOPHEN 325 MG TAB PO PRN ×2 (02:50→11:21)
[2017-08-11] MEDS: PIPERACILLIN/TAZO 2.25 GM 50 ML IV SCH (03:22)
[2017-08-11 06:05] LABS: BASOPHILS # (AUTO) 0.1 (0.0-0.1); BASOPHILS % 0.3 % (0.0-1.0); HEMATOCRIT 38.4 % (38.2-49.6); HEMOGLOBIN 12.3 g/dL (14.0-18.0); LYMPHOCYTES % 4.4 % (18.0-39.1); MEAN CORPUSCULAR HEMOGLOBIN 29.4 pg (28-32); MEAN CORPUSCULAR VOLUME 91.9 fL (81-99); MONOCYTES # (AUTO) 1.3 (0.2-0.8); MONOCYTES % 5.7 % (4.4-11.3); NEUTROPHILS # (AUTO) 19.8 (2.1-6.9); NEUTROPHILS % 88.1 % (38.7-80.0); PLATELET COUNT 147 x10e3/uL (140-360); RED BLOOD COUNT 4.18 x10e6/uL (4.3-5.7); RED CELL DISTRIBUTION WIDTH 16.8 % (11.7-14.4)
[2017-08-11 06:24] LABS: ANION GAP 21.2 mmol/L (8-16); CALCIUM 8.8 mg/dL (8.4-10.2); CREATININE, SERUM 3.92 mg/dL (0.72-1.25); MAGNESIUM 1.7 MG/DL (1.3-2.1); PHOSPHORUS 4.5 MG/DL (2.3-4.7); POTASSIUM 3.2 mmol/L (3.5-5.1)
[2017-08-11] MEDS: PANTOPRAZOLE 40 MG 10ML VIAL IV SCH (08:02)
[2017-08-11] MEDS: SUCRALFATE 1 GM/10 ML SUSP NG SCH (08:02)
[2017-08-11] MEDS: METOPROLOL TARTRATE 25 MG TAB PO SCH (08:02)
[2017-08-11] MEDS: FUROSEMIDE INJ 10 MG/ML 4 ML VIAL IV SCH (08:02)
[2017-08-11] MEDS: METHYLPREDNISOLONE SOD SUCC 40 MG/ML VIAL IV SCH (08:02)
[2017-08-11] MEDS ORDERED: IPRATROPIUM BROMIDE 0.02% 2.5 ML NEB NEB SCH (08:45)
[2017-08-11] MEDS ORDERED: ALPRAZOLAM 0.25 MG TAB PO PRN (08:45)
[2017-08-11] MEDS ORDERED: LEVALBUTEROL HCL SOLN NEBU 0.63 MG/3 ML NEB INH PRN (08:45)
[2017-08-11] MEDS ORDERED: METHYLPREDNISOLONE SOD SUCC 40 MG/ML VIAL IV SCH (09:00)
[2017-08-11] MEDS: BALSAM PERU/CASTOR OIL 60 GM OINT...G. TP SCH (09:23)
[2017-08-11] MEDS ORDERED: NOREPINEPHRINE 8 MG/D5W 250 ML 250 ML ONE (11:41)
[2017-08-11] MEDS ORDERED: LEVALBUTEROL HCL SOLN NEBU 0.63 MG/3 ML NEB INH SCH (13:00)
[2017-08-11] MEDS ORDERED: MEROPENEM 500 MG VIAL IV SCH (14:00)
[2017-08-11] MEDS ORDERED: MEROPENEM 500MG 500 MG in SODIUM CHLORIDE 0.9% 50ML 50 ML IV SCH (14:00)
--- NOTE | 2017-08-17 12:47 | Consultation ---
DATE OF CONSULTATION: August 02, 2017 REFERRING: Dr. Cali Solis CHIEF COMPLAINT: GI bleeding. HISTORY OF PRESENT ILLNESS: A very pleasant, 81-year-old man with history of COPD, heart disease, status post OH, intubated, consulted due to upper GI bleeding. Patient has blood coming out of the OG tube. He was currently on aspirin and Lovenox. This has been stopped. He was on Protonix intermittently. He was placed on a Protonix drip. Patient is intubated. He is sedated. Vital signs are stable. Blood pressure is 111/63. Pulse 57. PAST MEDICAL HISTORY: Lung disease, heart disease. SURGICAL HISTORY: See old records. FAMILY HISTORY: Noncontributory. SOCIAL HISTORY: He is an ex-smoker. OTHER MEDICAL HISTORY: Renal disease. REVIEW OF SYSTEMS: Patient history. PHYSICAL EXAM VITAL SIGNS: Blood pressure 140/80, pulse 80, temperature 98. GENERAL: A well-nourished, elderly man, in no distress. HEENT: No pallor. ABDOMEN: Soft, nontender. EXTREMITIES: No edema. ASSESSMENT AND PLAN: Gastrointestinal bleeding. Patient currently intubated. Hemoglobin was 7.5. I recommended at this time 2 units of packed red blood cells. Proton pump inhibitor intravenously. Consent for esophagogastroduodenoscopy. Depending on response to blood transfusions, will consider doing esophagogastroduodenoscopy either tomorrow morning or emergently tonight if patient does not respond to his blood transfusions. Job#: [id number] CQ
== END 2017-08-11 14:40 | disposition expired | DRG 981 ==
LOC: ER 02:21 → ICU 04:49
PROVIDERS: ADMIT Internal Medicine; ATTEND Internal Medicine
PROC: 02703ZZ Dilation of Coronary Artery, One Artery, Percutaneous Approach (ICD-10-PCS; 2017-07-29)
PROC: 0BH17EZ Insertion of Endotracheal Airway into Trachea, Via Natural or Artificial Opening (ICD-10-PCS; 2017-07-29)
PROC: 5A1955Z Respiratory Ventilation, Greater than 96 Consecutive Hours (ICD-10-PCS; 2017-07-29)
PROC: 02HV33Z Insertion of Infusion Device into Superior Vena Cava, Percutaneous Approach (ICD-10-PCS; 2017-07-29)
PROC: B548ZZA Ultrasonography of Superior Vena Cava, Guidance (ICD-10-PCS; 2017-07-29)
PROC: 4A023N7 Measurement of Cardiac Sampling and Pressure, Left Heart, Percutaneous Approach (ICD-10-PCS; 2017-07-29)
PROC: B2111ZZ Fluoroscopy of Multiple Coronary Arteries using Low Osmolar Contrast (ICD-10-PCS; 2017-07-29)
PROC: 5A1D70Z Performance of Urinary Filtration, Intermittent, Less than 6 Hours Per Day (ICD-10-PCS; 2017-07-31)
PROC: 0W3P8ZZ Control Bleeding in Gastrointestinal Tract, Via Natural or Artificial Opening Endoscopic (ICD-10-PCS; 2017-08-03)
PROC: 0DJ08ZZ Inspection of Upper Intestinal Tract, Via Natural or Artificial Opening Endoscopic (ICD-10-PCS; 2017-08-03)
PROC: 3E0G8GC Introduction of Other Therapeutic Substance into Upper GI, Via Natural or Artificial Opening Endoscopic (ICD-10-PCS; principal; 2017-08-03 11:00)
PROC: 5A1D70Z Performance of Urinary Filtration, Intermittent, Less than 6 Hours Per Day (ICD-10-PCS; 2017-08-05)
PROC: 5A1D70Z Performance of Urinary Filtration, Intermittent, Less than 6 Hours Per Day (ICD-10-PCS; 2017-08-07)
PROC: 5A1D70Z Performance of Urinary Filtration, Intermittent, Less than 6 Hours Per Day (ICD-10-PCS; 2017-08-11)
DX: J96.22 Acute and chronic respiratory failure with hypercapnia (principal); I21.19 ST elevation (STEMI) myocardial infarction involving other coronary artery of inferior wall; I50.23 Acute on chronic systolic (congestive) heart failure; N18.6 End stage renal disease; I13.2 Hypertensive heart and chronic kidney disease with heart failure and with stage 5 chronic kidney disease, or end stage renal disease; J44.1 Chronic obstructive pulmonary disease with (acute) exacerbation; N17.9 Acute kidney failure, unspecified; N13.30 Unspecified hydronephrosis; N39.0 Urinary tract infection, site not specified; D62 Acute posthemorrhagic anemia; Z99.81 Dependence on supplemental oxygen; Z87.891 Personal history of nicotine dependence; E86.0 Dehydration; E11.22 Type 2 diabetes mellitus with diabetic chronic kidney disease; Z85.46 Personal history of malignant neoplasm of prostate; D63.8 Anemia in other chronic diseases classified elsewhere; Z99.2 Dependence on renal dialysis; I50.84 End stage heart failure
CPT/HCPCS: 36140; 36415; 36556; 36600; 71045; 71046; 74018; 74230; 74470; 76770; 76937; 77002; 80048; 80053; 80061; 81001; 81015; 82270; 82550; 82553; 82570; 82575; 82607; 82805; 82948; 83036; 83540; 83735; 83880; 84100; 84156; 84300; 84443; 84466; 84484; 85014; 85018; 85025; 85347; 85610; 85730; 86704; 86706; 86850; 86900; 86920; 87040; 87070; 87086; 87205; 87340; 87493; 90962; 93005; 93306; 93458; 93880; 93925; 93970; 94002; 94003; 94640; 94660; 96372; 97139; 99284; J0583; J0696; J1160; J1630; J1644; J1650; J1940; J2001; J2150; J2250; J2270; J2543; J2916; J2920; J2930; J3480; J7030; J7040; J7050; P9016; Q4081; Q9967